=== PATIENT | female | born 1950 | race Caucasian/White ===

== ENCOUNTER → 2019-11-08 07:34 | Outpatient (CLI) | payer MEDICARE, OTHER, SELFPAY ==
--- NOTE | 2019-11-08 | DI.MRI.S_ITS ---
PROCEDURE: MR WRIST LT WO CON INDICATIONS: UNSPECIFIED SUPERFICIAL OF LEFT WRIST TECHNIQUE: Noncontrast coronal proton density fast spin echo and T2 fast spin echo with fat saturation; coronal 3-D gradient echo, axial T1 spin echo and T2 fast spin echo with fat saturation, sagittal T1 spin echo through the wrist. COMPARISON: None. FINDINGS: Image quality: Excellent. Bones and cartilage: The carpal bones are normally aligned. No bone marrow contusions or fractures. No evidence for avascular necrosis. Scattered degenerative subchondral sclerosis and spurring. Carpal ligaments: The scapholunate and lunotriquetral ligaments appear intact. In the absence of intra-articular contrast, the extrinsic carpal ligaments are not well identified. On sagittal images, the pisohamate ligament appears intact. Triangular fibrocartilage complex: The triangular fibrocartilage appears intact. The adjacent meniscal homolog appears normal in the absence of intra-articular contrast. The extensor carpi ulnaris tendon is intact although there is mild adjacent fluid suggestive of low-grade tenosynovitis. Tendons and soft tissues: The carpal tunnel structures appear normal, including the median nerve. The ulnar nerve appears normal within Guyon's canal. There is mild fluid adjacent to the extensor carpi radialis longus and brevis tendon suggestive of low-grade tenosynovitis. However, there is marked thickening of the extensor pollicis brevis tendon at the level of the scaphoid, with marked intrasubstance signal change and T2 hyperintensity. There is adjacent edema and fluid. No soft tissue ganglion cysts. IMPRESSION: Severe extensor pollicis brevis tendinopathy, at the level of the anatomic snuffbox, suggestive of de Quervain's tenosynovitis Low-grade tenosynovitis involving the extensor carpi ulnaris, extensor carpi radialis longus and brevis. Dictated by: Nitish Rogers M.D. on 11/08/2019 at 10:40 Approved by: Nitish Rogers M.D. on 11/08/2019 at 10:57
== END ==
PROVIDERS: PCP General Practice; Referring Provider General Practice; Visit Provider General Practice
DX: S60.912A Unspecified superficial injury of left wrist, initial encounter (principal); M65.832 Other synovitis and tenosynovitis, left forearm; X58.XXXA Exposure to other specified factors, initial encounter
CPT/HCPCS: 73221

== ENCOUNTER 2020-10-19 09:42 | Inpatient (IN) | payer MEDICARE, OTHER, SELFPAY ==
[2020-10-19] VITALS (16 sets, daily range): BP systolic 110–157; BP diastolic 66–84; PULSE 60–82; RESP 12–39; TEMP 36.4–37.3; O2SAT 94–98; BMI 29.4
--- NOTE | 2020-10-19 10:22 | DI.RAD.S_ITS ---
PROCEDURE: XR CHEST 1V INDICATIONS: chest pain TECHNIQUE: One view of the chest was acquired. COMPARISON: None. FINDINGS: Surgical changes and devices: None. Lungs and pleura: Lungs are clear. No pleural effusions or pneumothorax. Mediastinum: Mediastinal contours appear normal. Heart size is normal. Bones and chest wall: No suspicious bony lesions. Overlying soft tissues appear unremarkable. IMPRESSION: Normal for age, source of current chest pain symptoms is not seen. Dictated by: Adam Garcia M.D. on 10/19/2020 at 11:02 Approved by: Adam Garcia M.D. on 10/19/2020 at 11:02
--- NOTE | 2020-10-19 10:33 | DI.CT.S_ITS ---
PROCEDURE: CT ANGIO HEAD AND NECK INDICATIONS: right side numbness TECHNIQUE: Precontrast CT scanning earlier same day reviewed. After the administration of intravenous contrast, 1 mm thick sections acquired from the aortic arch through the [place] of [place]. Post-contrast 4.5 mm thick sections then re-acquired from the foramen magnum to the vertex. 3-dimensional thwraqw-oklvafbxo-cywlezeirw (MIP) and/or volume rendering reformats were acquired of the central intracranial vasculature and neck separately. COMPARISON: [facility], CT, CT HEAD/BRAIN WO CON, 10/19/2020, 11:26. FINDINGS: Image quality: Excellent. BRAIN: CSF spaces: Ventricles are normal in size and shape. Basal cisterns are patent. No extra-axial fluid collections. Brain: No midline shift. No intracranial bleeds or masses. Snyder-white matter interface appears intact. Skull and face: Calvarium and facial bones appear intact, without suspicious lesions. Orbits appear normal. Sinuses: Sinuses and mastoids are clear. HEAD CT ANGIOGRAPHY: Anterior circulation: Intracranial internal carotid arteries are normal in size and flow. The flow within the paired anterior cerebral arteries is normal and symmetric. The flow within the middle cerebral arteries is normal and symmetric. The anterior communicating artery is seen. No aneurysms are seen. Posterior circulation: Visualized portions of the vertebral arteries demonstrate normal caliber, and join to form a normal appearing basilar artery. Flow within the posterior cerebral arteries is normal and symmetric. No aneurysms are seen. NECK CT ANGIOGRAPHY: Carotid system: The great vessels demonstrate a conventional anatomy as they arise from the aortic arch. The origins of the common carotid arteries appear patent. The common carotid arteries demonstrate normal caliber and courses. The bifurcation regions are both widely patent. The internal carotid arteries demonstrate normal calibers and courses. Posterior circulation: The origins of the vertebral arteries both appear widely patent. The more superior extracranial portions of both vertebral arteries also demonstrate normal courses and calibers. They join to form a normal appearing basilar artery. Soft tissues: Visualized neck soft tissues demonstrate no suspicious abnormalities. Bones: No suspicious bony lesions. Visualized cervical spine appears normally aligned. IMPRESSION: No sign of aneurysm or occlusion by embolic disease. No vascular malformation is seen. Intracranial CT angiogram appears normal. Cervical CT angiogram appears normal. Any quantitative measurements of stenosis were performed using NASCET criteria. Dictated by: Adam Garcia M.D. on 10/19/2020 at 11:57 Approved by: Adam Garcia M.D. on 10/19/2020 at 12:00
--- NOTE | 2020-10-19 10:33 | DI.CT.S_ITS ---
PROCEDURE: CT HEAD/BRAIN WO CON INDICATIONS: right side numbness woke up with symptoms TECHNIQUE: Noncontrast 4.5 mm thick angled axial sections acquired from the foramen magnum to the vertex, with coronal and sagittal reformats. For radiation dose reduction, the following was used: automated exposure control, adjustment of mA and/or kV according to patient size. COMPARISON: None. FINDINGS: Image quality: Excellent. CSF spaces: Basal cisterns are patent. No extra-axial fluid collections. Ventricles are normal in size and shape. Brain: No midline shift. No intracranial masses or hemorrhage. Snyder-white matter interface is normal. Skull and face: Calvarium and visualized facial bones are intact, without suspicious lesions. Sinuses: Visualized sinuses and mastoids are clear. IMPRESSION: Normal for age, source of current right-sided numbness symptoms is not seen. Dictated by: Adam Garcia M.D. on 10/19/2020 at 10:55 Approved by: Adam Garcia M.D. on 10/19/2020 at 10:57
[2020-10-19 10:35] LABS: Magnesium 1.9 mg/dL (1.6-2.3)
[2020-10-19 10:36] LABS: Alanine Aminotransferase 27 IU/L (<35); Albumin 4.1 g/dL (3.5-5.0); Albumin Globulin Ratio 1.3 (1.0-2.8); Alkaline Phosphatase 81 U/L (38-126); Aspartate Aminotransferase 35 IU/L (14-36); BUN Creatinine Ratio 24.6 (6-22); Bilirubin Total 0.3 mg/dL (0.2-1.3); Blood Urea Nitrogen 15 mg/dL (7-17); Calcium 9.6 mg/dL (8.4-10.2); Carbon Dioxide 25 mmol/L (22-32); Chloride 106 mmol/L (98-107); Creatine Kinase 27 U/L (30-135); Estimated Glomerular Filt Rate > 60.0 mL/min (>60); Globulin 3.1 g/dL (1.7-4.1); Glucose 95 mg/dL (80-110); HEMOLYSIS < 15 (0-50); Lipase 144 U/L (23-300); Potassium 4.2 mmol/L (3.4-5.1); Sodium 141 mmol/L (137-145); Total Protein 7.2 g/dL (6.3-8.2)
[2020-10-19 10:42] LABS: Add Manual Diff / Slide Review NO; Basophils Absolute Auto 0 /uL (0-100); Basophils Percent Auto 0.4 % (0-2); Eosinophils Absolute Auto 100 /uL (0-450); Eosinophils Percent Auto 1.1 % (2-4); Hemoglobin 14.2 g/dL (12.0-16.0); Lymphocytes Absolute Auto 1500 /uL (1100-4500); Lymphocytes Percent Auto 30.1 % (25-40); Mean Corpuscular HGB Conc 32.3 % (30-36); Mean Corpuscular Hemoglobin 25.4 PG (26-34); Mean Corpuscular Volume 78.5 fL (80-100); Monocytes Absolute Auto 400 /uL (0-900); Neutrophils Absolute Auto 3100 /uL (1500-7000); Neutrophils Percent Auto 61.4 % (50-75); Platelet Count 213 X10^3/uL (150-400); Red Blood Cell Count 5.61 X10^6/uL (4.0-5.2); Red Cell Distribution Width 13.9 % (11.6-14.8); White Blood Cell Count 5.1 X10^3/uL (4.5-11.0)
[2020-10-19 10:47] LABS: Troponin I < 0.012 ng/mL (0.01-0.034)
--- NOTE | 2020-10-19 10:55 | ED_ITS ---
HPI - Neuro Symptoms/Deficit General Chief Complaint: Neuro Symptoms/Deficit Stated Complaint: NUMBNESS ON LEFT SIDE OF BODY Time Seen by Provider: 10/19/20 10:33 Source: patient Mode of arrival: Ambulatory Limitations: no limitations History of Present Illness HPI Narrative: Patient is a 69-year-old female who woke up with right-sided weakness. She says she went to bed normal last night when she went to brush her teeth this morning and was unable to hold a toothbrush. She has some mild numbness on the right side as well. No difficulty walking or talking. No prior history of his CVA or TIA. She does take aspirin daily she took 81 mg this morning. Location: right arm On Anticoagulants: No Related Data Home Medications Medication Instructions Recorded Confirmed aspirin 81 mg PO DAILY 10/19/20 10/19/20 calcium carbonate-vitamin D2 1 tab PO DAILY 10/19/20 10/19/20 [Calcium + Vitamin D] levothyroxine [Synthroid] 25 mcg PO DAILY 10/19/20 10/19/20 multivitamin [A To Z Multivitamin] 1 tab PO DAILY 10/19/20 10/19/20 omeprazole 20 mg PO DAILY 10/19/20 10/19/20 sertraline 200 mg PO DAILY 10/19/20 10/19/20 tolterodine 2 mg PO DAILY 10/19/20 10/19/20 Allergies Allergy/AdvReac Type Severity Reaction Status Date / Time zinc Allergy Verified 10/19/20 10:17 Review of Systems Review of Systems Narrative: GENERAL: Denies chills, fatigue, malaise, fever, sweats, travel HEENT: Denies sinus pain, ear pain, sore throat, difficulty swallowing, neck p ain RESPIRATORY: Denies dyspnea, cough, wheezing, hemoptysis, sputum. CARDIOVASCULAR: Denies chest pain, palpitations, orthopnea, edema GASTROINTESTINAL: Denies nausea, vomiting, abdominal pain, diarrhea, constipation, melena. : Denies dysuria, frequency, incontinence, hematuria, urinary retention, flank pain. MUSCULOSKELETAL: Denies weakness, joint pain, or bony pain SKIN: No rash, no erythema, no pruritus NEUROLOGIC: See HPI PSYCHIATRIC: No concerning psychosocial issues. 12 point review of systems is negative except for those stated above and HPI Hematologic/Lymphatic On Anticoagulants: No Patient History Medical History Hypothyroidism Family History Sister Coronary artery disease Social History household members: significant other Smoking Status: Never smoker Smoking Status: Never smoker Substance Use Type: does not use Exam Initial Vital Signs Initial Vital Signs: Vital Signs Temperature 97.6 F 10/19/20 10:00 Pulse Rate 77 10/19/20 10:00 Respiratory Rate 18 10/19/20 10:00 Blood Pressure 135/77 10/19/20 10:00 Pulse Oximetry 95 10/19/20 10:00 GENERAL: Well-appearing 69-year-old female, well-nourished and in no acute distress. HEENT: Head atraumatic,EOMI, pupils reactive, face symmetric, moist mucous membranes CARDIOVASCULAR: Regular rate and rhythm without murmurs, rubs or gallops. RESPIRATORY: Breath sounds equal bilaterally, no wheezes rales or rhonchi. ABDOMEN: Soft, nontender. Normoactive bowel sounds all 4 quadrants. No guarding or rebound. EXTREMITIES: Normal range of motion, no clubbing or edema. Neurovascularly intact NEUROLOGICAL: Alert and oriented x4.Normal gait and speech. Cranial nerves II through XII grossly intact. Decreased police guard strength on the right but able to hold arm up for a full count of 10 Good jmwgeq-kl-rubp, good cdmv-vq-tocn, strength equal bilaterally, no dysarthria or aphasia, mild decrease in sensation in right hand but right arm is decreased, no visual changes, no facial droop SKIN: Warm, dry, no laceration, no petechiae, no rashes or lesions. Scores NIH Stroke Scale Level of Conciousness: Alert, keenly responsive Ask month/age: Answers both questions correctly. Open/close eyes, close hand: Performs both tasks correctly Best gaze horizontal: Normal Visual peralta: No visual loss Facial palsy: Normal symetrical movement Left arm drift: No drift for full 10 sec Right arm drift: No drift for full 10 sec Left leg drift: No drift for full 5 sec Right leg drift: No drift for full 5 sec Limb ataxia: Absent Sensory on face/arms/legs: Mild to moderate sensory loss, can tell touch Best language: No aphasia, normal Dysarthria: Normal Extinction or inattention: No abnormality Total NIH Stroke scale score: 1 Course Orders Ordered: ED Orders 10/19/20 10:10 Complete Blood Count AUTO DIFF Stat Comprehensive Metabolic Panel Stat Lipase Stat Magnesium Stat Troponin & CK Cardiac Panel Stat 10/19/20 10:22 XR chest 1V Stat EKG-12 Lead Stat 10/19/20 10:33 CT angio head and neck Stat CT head/brain wo con Stat 10/19/20 13:30 COVID19 - ADMIT ([facility] swab/PCR) Stat Acetaminophen (Acetaminophen 325 Mg Tablet) 650 mg PO Q6HR PRN PRN Reason: Fever/Mild Pain (1-3) Aspirin (Aspirin Ec 81 Mg Tablet) 81 mg PO DAILY [facility] Atorvastatin Calcium (Atorvastatin 20 Mg Tablet) 80 mg PO BEDTIME [facility] Clopidogrel Bisulfate (Clopidogrel 75 Mg Tablet) 75 mg PO DAILY [facility] Last Admin: 10/19/20 15:55 Dose: 75 mg Documented by: MOSES Enoxaparin Sodium (Enoxaparin 40 Mg/0.4 Ml Syringe) 40 mg SUBCUT DAILY [facility] Levothyroxine Sodium (Levothyroxine 25 Mcg Tablet) 25 mcg PO DAILY@0600 [facility] Naloxone HCl (Naloxone 0.4 Mg/Ml Vial) 0.2 mg IV Q2MIN PRN PRN Reason: Opiate Reversal Ondansetron HCl (Ondansetron 4 Mg/2 Ml Inj) 4 mg IV Q8HR PRN PRN Reason: Nausea And Vomiting Sertraline HCl (Sertraline 50 Mg Tablet) 200 mg PO DAILY [facility] Discontinued Medications Aspirin (Aspirin 81 Mg Chew Tab) 324 mg PO NOW ONE Stop: 10/19/20 10:23 Last Admin: 10/19/20 11:00 Dose: 243 mg Documented by: HILL Aspirin (Aspirin 81 Mg Chew Tab) 324 mg PO NOW ONE Stop: 10/19/20 13:20 Last Admin: 10/19/20 13:23 Dose: Not Given Documented by: SURJIT Vital Signs Vital signs: Vital Signs - 8 hr 10/19/20 11:00 10/19/20 11:03 10/19/20 11:47 Pulse Rate 67 74 65 Respiratory Rate 39 H 21 20 Blood Pressure 134/83 Pulse Oximetry 95 95 96 10/19/20 12:00 10/19/20 12:30 10/19/20 12:46 Pulse Rate 61 60 64 Respiratory Rate 20 24 18 Blood Pressure 119/72 Pulse Oximetry 96 94 98 10/19/20 13:00 06/05/21 13:05 Pulse Rate 61 61 Respiratory Rate 12 14 Blood Pressure 116/71 116/71 Pulse Oximetry 95 98 MDM - Neuro Symptoms/Deficit Lab Data Attestation: I reviewed the patient's lab results. Result diagrams: 10/19/20 10:10 10/19/20 10:10 Labs: Lab Results 10/19/20 10/19/20 10/19/20 Range/Units 10:10 10:10 10:10 WBC 5.1 (4.5-11.0) X10^3/uL RBC 5.61 H (4.0-5.2) X10^6/uL Hgb 14.2 (12.0-16.0) g/dL Hct 44.0 (36-46) % MCV 78.5 L (80-100) fL MCH 25.4 L (26-34) PG MCHC 32.3 (30-36) % RDW 13.9 (11.6-14.8) % Plt Count 213 (150-400) X10^3/uL Neut % (Auto) 61.4 (50-75) % Lymph % (Auto) 30.1 (25-40) % Churchill % (Auto) 7.0 (3-14) % Eos % (Auto) 1.1 L (2-4) % Baso % (Auto) 0.4 (0-2) % Neut # (Auto) 3100 (4566-2738) /uL Lymph # (Auto) 1500 (2624-0993) /uL Churchill # (Auto) 400 (0-900) /uL Eos # (Auto) 100 (0-450) /uL Baso # (Auto) 0 (0-100) /uL Sodium 141 (137-145) mmol/L Potassium 4.2 (3.4-5.1) mmol/L Chloride 106 (98-107) mmol/L Carbon Dioxide 25 (22-32) mmol/L BUN 15 (7-17) mg/dL Creatinine 0.61 (0.52-1.04) mg/dL Estimated GFR > 60.0 (>60) mL/min BUN/Creatinine Ratio 24.6 H (6-22) Glucose 95 (80-110) mg/dL Calcium 9.6 (8.4-10.2) mg/dL Magnesium 1.9 (1.6-2.3) mg/dL Total Bilirubin 0.3 (0.2-1.3) mg/dL AST 35 (14-36) IU/L ALT 27 (<35) IU/L Alkaline Phosphatase 81 (38-126) U/L Total Creatine Kinase 27 L (30-135) U/L CK-MB (CK-2) TNP CK-MB (CK-2) Rel Index TNP Troponin I < 0.012 (0.01-0.034) ng/mL Total Protein 7.2 (6.3-8.2) g/dL Albumin 4.1 (3.5-5.0) g/dL Globulin 3.1 (1.7-4.1) g/dL Albumin/Globulin Ratio 1.3 (1.0-2.8) Lipase 144 (23-300) U/L TSH (0.47-4.68) uIU/mL 10/19/20 Range/Units 10:10 WBC (4.5-11.0) X10^3/uL RBC (4.0-5.2) X10^6/uL Hgb (12.0-16.0) g/dL Hct (36-46) % MCV (80-100) fL MCH (26-34) PG MCHC (30-36) % RDW (11.6-14.8) % Plt Count (150-400) X10^3/uL Neut % (Auto) (50-75) % Lymph % (Auto) (25-40) % Churchill % (Auto) (3-14) % Eos % (Auto) (2-4) % Baso % (Auto) (0-2) % Neut # (Auto) (5155-0001) /uL Lymph # (Auto) (2062-5657) /uL Churchill # (Auto) (0-900) /uL Eos # (Auto) (0-450) /uL Baso # (Auto) (0-100) /uL Sodium (137-145) mmol/L Potassium (3.4-5.1) mmol/L Chloride (98-107) mmol/L Carbon Dioxide (22-32) mmol/L BUN (7-17) mg/dL Creatinine (0.52-1.04) mg/dL Estimated GFR (>60) mL/min BUN/Creatinine Ratio (6-22) Glucose (80-110) mg/dL Calcium (8.4-10.2) mg/dL Magnesium (1.6-2.3) mg/dL Total Bilirubin (0.2-1.3) mg/dL AST (14-36) IU/L ALT (<35) IU/L Alkaline Phosphatase (38-126) U/L Total Creatine Kinase (30-135) U/L CK-MB (CK-2) CK-MB (CK-2) Rel Index Troponin I (0.01-0.034) ng/mL Total Protein (6.3-8.2) g/dL Albumin (3.5-5.0) g/dL Globulin (1.7-4.1) g/dL Albumin/Globulin Ratio (1.0-2.8) Lipase (23-300) U/L TSH 1.95 (0.47-4.68) uIU/mL Imaging Data CTA - brain/neck: Radiologist's Impression: Signed Patient: Mary Beth Alfredo AMR#: [id number]: 3Acct:[id number]/Sex: 69 / FDate of Service: 10/19/20Loc: EDAccession Number: [id number] Procedure: CT angio head and neck Ordering Provider: Valentina Schultz D.O. PROCEDURE: CT ANGIO HEAD AND NECK INDICATIONS: right side numbness TECHNIQUE: Precontrast CT scanning earlier same day reviewed. After the administration of intravenous contrast, 1 mm thick sections acquired from the aortic arch through the [place] of [place]. Post-contrast 4.5 mm thick sections then re-acquired from the foramen magnum to the vertex. 3-dimensional ouwwuil-eajpsocex-ejglyuaciu (MIP) and/or volume rendering reformats were acquired of the central intracranial vasculature and neck separately. COMPARISON: [facility], CT, CT HEAD/BRAIN WO CON, 10/19/2020, 11:26. FINDINGS: Image quality: Excellent. BRAIN: CSF spaces: Ventricles are normal in size and shape. Basal cisterns are patent. No extra-axial fluid collections. Brain: No midline shift. No intracranial bleeds or masses. Snyder-white matter interface appears intact. Skull and face: Calvarium and facial bones appear intact, without suspicious lesions. Orbits appear normal. Sinuses: Sinuses and mastoids are clear. HEAD CT ANGIOGRAPHY: Anterior circulation: Intracranial internal carotid arteries are normal in size and flow. The flow within the paired anterior cerebral arteries is normal and symmetric. The flow within the middle cerebral arteries is normal and symmetric. The anterior communicating artery is seen. No aneurysms are seen. Posterior circulation: Visualized portions of the vertebral arteries demonstrate normal caliber, and join to form a normal appearing basilar artery. Flow within the posterior cerebral arteries is normal and symmetric. No aneurysms are seen. NECK CT ANGIOGRAPHY: Carotid system: The great vessels demonstrate a conventional anatomy as they arise from the aortic arch. The origins of the common carotid arteries appear patent. The common carotid arteries demonstrate normal caliber and courses. The bifurcation regions are both widely patent. The internal carotid arteries demonstrate normal calibers and courses. Posterior circulation: The origins of the vertebral arteries both appear widely patent. The more superior extracranial portions of both vertebral arteries also demonstrate normal courses and calibers. They join to form a normal appearing basilar artery. Soft tissues: Visualized neck soft tissues demonstrate no suspicious abnormalities. Bones: No suspicious bony lesions. Visualized cervical spine appears normally aligned. IMPRESSION: No sign of aneurysm or occlusion by embolic disease. No vascular malformation is seen. Intracranial CT angiogram appears normal. Cervical CT angiogram appears normal. Any quantitative measurements of stenosis were performed using NASCET criteria. Dictated by: Adam Garcia M.D. on 10/19/2020 at 11:57 Approved by: Adam Garcia M.D. on 10/19/2020 at 12:00 CT scan - head: Radiologist's Impression: PROCEDURE: CT HEAD/BRAIN WO CON INDICATIONS: right side numbness woke up with symptoms TECHNIQUE: Noncontrast 4.5 mm thick angled axial sections acquired from the foramen magnum to the vertex, with coronal and sagittal reformats. For radiation dose reduction, the following was used: automated exposure control, adjustment of mA and/or kV according to patient size. COMPARISON: None. FINDINGS: Image quality: Excellent. CSF spaces: Basal cisterns are patent. No extra-axial fluid collections. Ventricles are normal in size and shape. Brain: No midline shift. No intracranial masses or hemorrhage. Snyder-white matter interface is normal. Skull and face: Calvarium and visualized facial bones are intact, without suspicious lesions. Sinuses: Visualized sinuses and mastoids are clear. IMPRESSION: Normal for age, source of current right-sided numbness symptoms is not seen. Dictated by: Adam Garcia M.D. on 10/19/2020 at 10:55 Approved by: Adam Garcia M.D. on 10/19/2020 at 10:57 ECG Data Attestation: I personally reviewed and interpreted this ECG as follows: Prior ECG tracings: not available for review Interpretation: Rate 70 p.r. interval 172 QRS [address] changes Q-wave noted in lead 3 only no priors to compare MDM Narrative Medical decision making narrative: At this time patient signs and symptoms are concerning for CVA with rate hand weakness and inability no hold to fresh. Although NIH is notable for decreased sensation in right hand. She has mild decreased police guard strength of the right hand but is able to hold her arm a for a full 10 seconds. Signs symptoms and exam are consistent with CVA. However head CT and CTA are negative. Every examined patient as she is able to hold a pen in her right hand but she says it still does not feel quite right. Dr. Yepez updated patient symptoms and test results in ED to seen evaluate patient Discharge Plan Departure Patient Disposition: Admitted As Inpatient Clinical Impression: Cerebrovascular accident Admit Date/Time: 10/19/20 13:24 Admit Provider: Brad Yepez
[2020-10-19] MEDS: ASPIRIN 81 MG CHEW TAB 324 MG PO (11:00)
--- NOTE | 2020-10-19 13:58 | PC.NURSE ---
swallow screen passed, pt sitting up in bed eating
--- NOTE | 2020-10-19 14:37 | DI.MRI.S_ITS ---
PROCEDURE: MR STROKE Pre- and post-contrast brain MRI, non-contrast brain MR angiogram, pre- and postcontrast neck MR angiogram INDICATIONS: CVA TECHNIQUE: Brain: Noncontrast axial T1 spin echo, axial T2 fast spin echo, sagittal and axial FLAIR, coronal T2 fast spin echo, axial gradient echo, axial diffusion and ADC through the brain. After the administration of contrast, axial 3D VIBE of the cranial vasculature and brain. Brain MRA: Non-contrast 3-D time of flight MR angiogram, with multiple bilwmoa-clyqghbba-upwozyftli (MIP) reformats performed. Neck MRA: Axial and sagittal TruFISP through the neck. Coronal dynamic MR angiogram during administration of contrast in the arterial and venous phases, with 3-dimenstional hlmwcge-bpgskuazq-blmfsloeoi (MIP) reformats constructed from subtraction images. COMPARISON: None. FINDINGS: Image quality: Mildly reduced by patient motion during image acquisition. BRAIN: CSF spaces: Ventricles are normal in size and shape. Basal cisterns are patent. No extra-axial fluid collections. Brain: No intracranial bleeds or mass effects. Snyder-white matter interface is normal. Diffusion weighted images show no acute ischemic insults. Brainstem appears normal. Normal intravascular flow voids are present. No abnormal intracranial enhancement. Skull and face: Calvarial marrow signal is normal. Orbits appear normal. Sinuses: Sinuses and mastoids are clear. BRAIN MR ANGIOGRAM: Anterior circulation: Intracranial internal carotid arteries are normal in size and enhancement. The flow within the paired anterior cerebral arteries is normal and symmetric. The flow within the middle cerebral arteries is normal and symmetric. The anterior communicating artery is seen. No stenoses, occlusions, or aneurysms. Posterior circulation: The visualized portions of the vertebral arteries demonstrate normal caliber, and join to form a normal appearing basilar artery. The flow within the posterior cerebral arteries is normal and symmetric. No stenoses, occlusions, or aneurysms. NECK MR ANGIOGRAM: Carotids: Great vessels demonstrate a conventional anatomy as they arise from the aortic arch. The origins of the common carotid arteries appear patent. The calibers and courses of both common carotid arteries are normal. The bifurcation regions appear normal bilaterally. The internal carotid arteries demonstrate normal course and caliber. Posterior circulation: The origins of the vertebral arteries appear patent. More superior portions of both vertebral arteries demonstrate normal course and caliber, and join to form a normal appearing basilar artery. Miscellaneous: Subclavian arteries appear patent. Pre-contrast images through the neck show no soft tissue abnormalities. IMPRESSION: BRAIN MRI: No acute disease, no mass or trauma found. BRAIN MR ANGIOGRAM: Normal intracranial MR angiogram. NECK MR ANGIOGRAM: Normal cervical MR angiogram. Dictated by: Adam Garcia M.D. on 10/20/2020 at 8:43 Approved by: Adam Garcia M.D. on 10/20/2020 at 8:45
[2020-10-19 14:38] LABS: COVID19 - ADMIT (NP swab/PCR) Negative (Negative)
--- NOTE | 2020-10-19 14:39 | DI.ECHO.S_ITS ---
[facility] +---------+ : : [address] : [place] : : : : [id number] : : : : Phone: [phone]+ Echocardiogram Report + + :Name: TATYANA HYATT Study Date: 10/20/2020 Height: 60.5 in: :[facility] ReadingLocation: Weight: 153 lb : : Gender: Female BSA: 1.7 m2 : :: 1950 Age: 69 yrs BP: 154/84 mmHg: :Reason For Study: CVA : :Ordering Physician: EVANGELISTA, : :FELICIANO Performed By: Holly Daigle : :Referring: FELICIANO NAIDU : + + Interpretation Summary The left ventricle is normal in size and wall thickness. Left ventricular systolic function appears normal without focal wall motion abnormalities. The ejection fraction is estimated to be 60-65%. Diastolic parameters suggest a relaxation abnormality of the left ventricle, consistent with probable normal filling pressures. The right ventricle is normal in size and function. The right ventricular systolic pressure is estimated to be at least 22 mmHg based on an estimated right atrial pressure of 3 mm Hg. The left atrial size is normal. Right atrial size is normal. There is no significant valvular heart disease. The aortic root is normal size. Procedure: A two-dimensional transthoracic echocardiogram with color flow and Doppler was performed. The study quality was technically adequate. There is no prior echocardiogram noted for this patient. The patient was in sinus rhythm with heart rates between 63-75 bpm during the exam. Left Ventricle: The left ventricle is normal in size and wall thickness. Left ventricular systolic function appears normal without focal wall motion abnormalities. The ejection fraction is estimated to be 60-65%. Diastolic parameters suggest a relaxation abnormality of the left ventricle, consistent with probable normal filling pressures. Right Ventricle: The right ventricle is normal in size and function. Atria: The left atrial size is normal. Right atrial size is normal. There is no Doppler evidence for an interatrial shunt. Mitral Valve: The mitral valve is normal in structure and function. There is trace mitral regurgitation. Aortic Valve: The aortic valve is trileaflet. The aortic valve opens well. There is no aortic valve stenosis. No aortic regurgitation is present. Tricuspid Valve: The tricuspid valve is normal in structure and function. There is mild tricuspid regurgitation. The right ventricular systolic pressure is estimated to be at least 22 mmHg based on an estimated right atrial pressure of 3 mm Hg. Pulmonic Valve: The pulmonic valve leaflets are thin and pliable; valve motion is normal. There is no pulmonic valvular regurgitation. There is no significant valvular heart disease. Great Vessels: The aortic root is normal size. The dimensions of the ascending aorta are normal. The IVC is of normal diameter and collapses greater than 50% with a sniff. This suggests a low right atrial pressure of 3 mm Hg. Pericardium/ Pleura There is no pericardial effusion. There is no pleural effusion. MMode/2D Measurements & Calculations LVIDd: 3.9 cm LVOT diam: 2.0 cm LVIDs: 2.7 cm Ao root diam: 3.2 cm FS: 31.5 % asc Aorta Diam: 3.1 cm IVSd: 0.85 cm Ao Arch Diam (Prox Trans): 2.4 cm LVPWd: 0.75 cm LV patten. diameter/BSA (cm/m^2): 2.3 LV sys. diameter/BSA (cm/m^2): 1.6 LA A2 area: 16.1 cm2 RA long axis: 4.7 cm LA A4 area: 11.6 cm2 RA area: 13.6 cm2 LA length (vol): 4.3 cm RA vol: 33.5 ml LA vol: 36.9 ml RA : 20.0 ml/m2 LA vol index: 22.0 ml/m2 IVC diam: 1.0 cm RVD1 (basal): 3.4 cm TAPSE: 2.3 cm Doppler Measurements & Calculations Ao V2 max: 133.5 cm/sec LVOT Max Isaac: 115.4 cm/sec Ao V2 mean: 96.6 cm/sec LV V1 max P.3 mmHg Ao max P.1 mmHg LV V1 VTI: 21.8 cm Ao mean P.0 mmHg KELLI(I,D): 2.3 cm2 Ao V2 VTI: 29.1 cm KELLI(V,D): 2.7 cm2 sev ratio: 0.75 KELLI indexed to BSA (cm^2/m^2): 1.4 MV E max isaac: 67.6 cm/sec TR max isaac: 221.6 cm/sec MV A max isaac: 77.8 cm/sec TR max P.6 mmHg MV E/A: 0.87 PA pr(Accel): 29.2 mmHg Med Peak E' Isaac: 5.7 cm/sec E/E' med: 11.9 Lat Peak E' Isaac: 8.6 cm/sec E/E' lat: 7.8 E/e' average: 9.9 MV dec time: 0.20 sec SV(LVOT): 67.9 ml Reading Physician:03:25 PM
[2020-10-19] MEDS: CLOPIDOGREL 75 MG TABLET PO (15:55)
--- NOTE | 2020-10-19 16:20 | PM.HP.1 ---
History of Present Illness History of Present Illness Date Patient Seen: 10/19/20 Time Patient Seen: 12:20 Date of Onset of Symptoms: 10/19/20 Chief complaint: NUMBNESS ON LEFT SIDE OF BODY Narrative: Ms. Alfredo is a 59W with PMH hypothyroidism, depression who comes in with right hand weakness. Went to sleep last night feeling normal. This morning she woke up and had difficulty holding her toothbrush to brush teeth. She had right sided numbness on her hand. She had right leg numbness up above her knee from her toes. She had no other noted weakness. No difficulty walking. No difficulty with speech or swallowing. No vision disturbances. She is already taking daily baby aspirin. In Er workup was done, she was noted to have normal vital signs. Labs notable for WBC 5.1, Hgb 14.2, creatinine 0.61. Ct head done showed no abnormality. CT head/neck showed no stenosis and normal flow. Cxray with no acute abnormalities. She was given full dose aspirin and admitted for further treatment. Patient History Medical History Hypothyroidism Family & Social History Family History Sister Coronary artery disease Social History: household members significant other Prior Living Arrangements House Safety & Behavioral: Feels Safe in Current Yes Environment Been Physically Hurt or No Threatened By a Person Suicidal Ideation Description None Suicide Plan Description No Plan Tobacco & Substance use: Smoking Status Never smoker alcohol intake frequency holiday/special occasion Substance Use Type does not use Meds Home Medications and Allergies Home Medications Medication Instructions Recorded Confirmed Type aspirin 81 mg PO DAILY 10/19/20 10/19/20 History calcium carbonate-vitamin D2 1 tab PO DAILY 10/19/20 10/19/20 History [Calcium + Vitamin D] levothyroxine [Synthroid] 25 mcg PO DAILY 10/19/20 10/19/20 History multivitamin [A To Z Multivitamin] 1 tab PO DAILY 10/19/20 10/19/20 History omeprazole 20 mg PO DAILY 10/19/20 10/19/20 History sertraline 200 mg PO DAILY 10/19/20 10/19/20 History tolterodine 2 mg PO DAILY 10/19/20 10/19/20 History Allergies Allergy/AdvReac Type Severity Reaction Status Date / Time zinc Allergy Verified 10/19/20 10:17 Review of Systems Review of Systems Narrative: 14 systems reviewed and negative aside from HPI Exam Vital Signs (past 8 hours): - 10/19/20 10:00 10/19/20 10:01 10/19/20 10:30 Temperature 97.6 F Pulse Rate 77 82 70 Respiratory Rate 18 27 H 38 H Blood Pressure 135/77 134/83 Pulse Oximetry 95 95 10/19/20 11:00 10/19/20 11:03 10/19/20 11:47 Temperature Pulse Rate 67 74 65 Respiratory Rate 39 H 21 20 Blood Pressure 134/83 Pulse Oximetry 95 95 96 10/19/20 12:00 10/19/20 12:30 10/19/20 12:46 Temperature Pulse Rate 61 60 64 Respiratory Rate 20 24 18 Blood Pressure 119/72 Pulse Oximetry 96 94 98 10/19/20 13:00 10/19/20 13:05 10/19/20 13:30 Temperature Pulse Rate 61 61 65 Respiratory Rate 12 14 23 Blood Pressure 116/71 116/71 157/67 H Pulse Oximetry 95 98 97 10/19/20 14:00 10/19/20 14:30 Temperature 98.3 F Pulse Rate 76 73 Respiratory Rate 20 16 Blood Pressure 154/84 H Pulse Oximetry 97 Oxygen Delivery Method Room Air Oxygen Flow Rate 0 Narrative Exam Narrative: GEN: no acute distress HEENT: PERRL, extraocular muscle intact, moist mucous membranes NECK: no JVD, trachea midline CV: regular rate and rhythm with no murmurs PULM: clear bilaterally, no wheezes, rhonchi, rales ABD: soft, nontender, nondistended, no organomegaly, normal bowel sounds EXT: warm and well perfused no edema SKIN: no rashes noted NEURO: AAOx3, subjective numbness of R hand, and R lower extremity primarily at toes, but also up the lateral leg to above the knee, no facial numbness, no left sided numbness, slightly less strength for hand squeeze on right than left, otherwise 5/5 strength in upper and lower extremities, no drift with holding arms for 10 seconds, no cerebellar signs, speech clear, CN 2-12 intact Objective Labs Result Diagrams: 10/19/20 10:10 10/19/20 10:10 Labs: Laboratory Results - last 24 hr 10/19/20 10/19/20 10/19/20 10:10 10:10 10:10 WBC 5.1 RBC 5.61 H Hgb 14.2 Hct 44.0 MCV 78.5 L MCH 25.4 L MCHC 32.3 RDW 13.9 Plt Count 213 Neut % (Auto) 61.4 Lymph % (Auto) 30.1 Cabell % (Auto) 7.0 Eos % (Auto) 1.1 L Baso % (Auto) 0.4 Neut # (Auto) 3100 Lymph # (Auto) 1500 [place]ell # (Auto) 400 Eos # (Auto) 100 Baso # (Auto) 0 Sodium 141 Potassium 4.2 Chloride 106 Carbon Dioxide 25 BUN 15 Creatinine 0.61 Estimated GFR > 60.0 BUN/Creatinine Ratio 24.6 H Glucose 95 Calcium 9.6 Magnesium 1.9 Total Bilirubin 0.3 AST 35 ALT 27 Alkaline Phosphatase 81 Total Creatine Kinase 27 L CK-MB (CK-2) TNP CK-MB (CK-2) Rel Index TNP Troponin I < 0.012 Total Protein 7.2 Albumin 4.1 Globulin 3.1 Albumin/Globulin Ratio 1.3 Lipase 144 SARS-CoV-2 (PCR) 10/19/20 13:30 WBC RBC Hgb Hct MCV MCH MCHC RDW Plt Count Neut % (Auto) Lymph % (Auto) Cabell % (Auto) Eos % (Auto) Baso % (Auto) Neut # (Auto) Lymph # (Auto) Cabell # (Auto) Eos # (Auto) Baso # (Auto) Sodium Potassium Chloride Carbon Dioxide BUN Creatinine Estimated GFR BUN/Creatinine Ratio Glucose Calcium Magnesium Total Bilirubin AST ALT Alkaline Phosphatase Total Creatine Kinase CK-MB (CK-2) CK-MB (CK-2) Rel Index Troponin I Total Protein Albumin Globulin Albumin/Globulin Ratio Lipase SARS-CoV-2 (PCR) Negative Assessment & Plan Assessment & Plan narrative: Ms. Alfredo is a 69W with PMH hypothyroidism, depression who comes in with sudden onset right sided numbness, and right hand weakness. 1. R hand weakness, with R side numbness -clinically consistent with acute CVA -CT head and CT angio head and neck with no abnormality -already on aspirin as an outpatient -will continue on aspirin, and add plavix -start high dose atorvastatin -qshift NIH scores -swallow screen -PT/OT/speech therapy -MRI brain ordered, ECHO ordered -check a1c and lipids 2. Hypothyroidism -continue synthroid -check TSH 3. Depression -continue sertraline IVF: None DVT ppx: lovenox sc DIET: pending swallow screen CODE: DNR, proxy is spouse Herve Salinas Stroke Onset of Symptoms Date: 10/19/20 VTE Deep Vein Thrombosis/Pulmonary Embolism Present on Admission: No MIPS - Admit I confirm the patient?s Advance Care Plan is present, Code status is documented, Surrogate decision maker is in patient?s record [If Yes, STOP here]: Yes
--- NOTE | 2020-10-19 17:45 | DI.MRI.S_ITS ---
PROCEDURE: MR CERVICAL SPINE WO/W CON INDICATIONS: numbness back, R arm, leg TECHNIQUE: Noncontrast sagittal T1 spin echo and T2 fast spin echo, sagittal STIR, foraminal oblique sagittal T2 fast spin echo, axial gradient echo or T2 fast spin echo through the cervical spine. After the administration of contrast, axial and sagittal T1 spin echo with fat saturation through the cervical spine. COMPARISON: None. FINDINGS: Image quality: Degraded by patient motion during image acquisition especially on the postcontrast imaging.. Alignment and curvature: There is normal bony alignment. Marrow: Marrow is normal in overall signal, without suspicious enhancement. Spinal cord: Visualized spinal cord has normal size and signal. No cerebellar tonsillar herniation. No abnormal intramedullary enhancement. Paraspinous soft tissues: No paravertebral masses or suspicious enhancement. C2-3: Normal appearance. C3-4: Mild degenerative disc height reduction without spinal or foraminal stenosis C4-5: Mild degenerative disc height reduction, and facet osteoarthritis is moderate with bilateral foraminal stenosis but no spinal stenosis. Patient motion degrades image quality. C5-6: [id number] degenerative disc disease, posterior broad-based transverse disc bulge chronic in appearance. Foraminal stenosis is minimal on the right but moderate on the left. Again, patient motion degrades quality of visualization. Mild C5-6 degenerative spinal stenosis. C6-7: [id number] degenerative disc height reduction and desiccation, bilateral facet osteoarthritis produces mild foraminal stenosis. Quality of visualization is limited by patient motion. C7-T1: Moderate degenerative disc disease, with disc height reduction, disc desiccation and a posterior broad-based chronic appearing mild disc bulge. Mild anterior spinal stenosis, asymmetric left greater than right bilateral foraminal stenosis appears present, minimal on the right and mild on the left. IMPRESSION: Significant patient motion degrades quality of visualization of this study is specially on postcontrast imaging and axial T2 imaging. The study shows moderate degenerative disc disease overall, with chronic appearing posterior transverse disc bulges, but only mild spinal stenosis at C5-6 and C7-T1. The degenerative facet osteoarthritis is associated with multilevel foraminal stenosis, generally left greater than right, and no definite disc herniation is found. Dictated by: Adam Garcia M.D. on 10/20/2020 at 8:46 Approved by: Adam Garcia M.D. on 10/20/2020 at 8:52
[2020-10-19 18:36] LABS: TSH w/ Reflex to FT4 1.95 uIU/mL (0.47-4.68)
[2020-10-19] MEDS: ATORVASTATIN 20 MG TABLET 80 MG PO (21:09)
[2020-10-20 04:25] VITALS: BP 138/77; PULSE 80; RESP 18; TEMP 36.4; O2SAT 98
[2020-10-20] MEDS: LEVOTHYROXINE 25 MCG TABLET PO (05:45)
[2020-10-20 06:13] LABS: Add Manual Diff / Slide Review NO; Basophils Absolute Auto 0 /uL (0-100); Basophils Percent Auto 0.4 % (0-2); Eosinophils Absolute Auto 100 /uL (0-450); Eosinophils Percent Auto 1.6 % (2-4); Hematocrit 42.2 % (36-46); Lymphocytes Absolute Auto 1900 /uL (1100-4500); Lymphocytes Percent Auto 32.6 % (25-40); Mean Corpuscular HGB Conc 33.2 % (30-36); Mean Corpuscular Hemoglobin 26.1 PG (26-34); Mean Corpuscular Volume 78.6 fL (80-100); Monocytes Absolute Auto 500 /uL (0-900); Monocytes Percent Auto 8.2 % (3-14); Neutrophils Absolute Auto 3300 /uL (1500-7000); Neutrophils Percent Auto 57.2 % (50-75); Platelet Count 187 X10^3/uL (150-400); Red Blood Cell Count 5.37 X10^6/uL (4.0-5.2); Red Cell Distribution Width 13.6 % (11.6-14.8); White Blood Cell Count 5.8 X10^3/uL (4.5-11.0)
[2020-10-20 06:20] LABS: Hemoglobin A1C% w Est Avg Glu 5.3 % (4.0-6.0)
[2020-10-20 06:30] LABS: Cholesterol 233 mg/dL (140-199); HDL Cholesterol 68 mg/dL (40-60); LDL Cholesterol Calculated 151 mg/dL (<100); Triglycerides 72 mg/dL (35-150)
[2020-10-20 06:31] LABS: BUN Creatinine Ratio 23.8 (6-22); Blood Urea Nitrogen 15 mg/dL (7-17); Calcium 8.9 mg/dL (8.4-10.2); Carbon Dioxide 30 mmol/L (22-32); Chloride 108 mmol/L (98-107); Estimated Glomerular Filt Rate > 60.0 mL/min (>60); Glucose 99 mg/dL (80-110); HEMOLYSIS < 15 (0-50); Potassium 4.6 mmol/L (3.4-5.1); Sodium 141 mmol/L (137-145)
[2020-10-20 07:00] LABS: TSH w/ Reflex to FT4 3.67 uIU/mL (0.47-4.68)
[2020-10-20] MEDS: LORazepam 2 MG/ML INJ 1 MG IV (08:02)
[2020-10-20] MEDS: ASPIRIN EC 81 MG TABLET PO (08:07)
[2020-10-20] MEDS: SERTRALINE 50 MG TABLET 200 MG PO (08:09)
[2020-10-20] MEDS: ENOXAPARIN 40 MG/0.4 ML SYRINGE SUBCUT (08:10)
[2020-10-20] MEDS: CLOPIDOGREL 75 MG TABLET PO (08:10)
[2020-10-20] MEDS: ACETAMINOPHEN 325 MG TABLET 650 MG PO (09:33)
[2020-10-20 09:38] VITALS: BP 135/70; PULSE 81; RESP 16; TEMP 36.7; O2SAT 98
--- NOTE | 2020-10-20 09:53 | CM.DANOTE ---
Addendum entered by Karma Recinos R.N. 10/20/20 14:15: Hospitalist indicated that MRI was misread, and patient did have CVA. P.T. recommending acute inpatient rehab. Called [facility] inpatient rehab and left a message regarding referral, and went ahead and faxed over H&P, face sheet, as well as P.T. notes. She has not had O.T. as of yet, as is unavailable today. Met with patient and . Patient teary, overwhelmed. Mentioned inpatient rehab, and the benefits. Also mentioned other options, outpatient with [facility], or home health. Let her know that for [facility], she will have to see occupational therapy as well, as two disciplines are needed, which would be tomorrow. Patient wishes to have some time to discuss with , and will let this case technician know. Original Note: DCP: Case received, EMR reviewed. Patient was having MRI, but was able to meet with patient's , Amari, who was at bedside. Introduced self and role. Was able to obtain information regarding patient's baseline activity status prior to hospitalization. DCP assessment completed with information currently available. Patient is a 69 year old female who admitted yesterday afternoon to the care of the hospitalist team. PCP: [facility], [place]. Payer: confirmed: Medicare/[employer]. Patient came to the hospital via private vehicle secondary to having right sided numbness and weakness. Patient had been brushing her teeth, and developed some tingling in her right hand, as well as her leg. Patient is being worked up here at the hospital for CVA. She is currently having MRI. Met with patient's , Amari, who was at bedside. Patient and reside in [place]. They are both retired. Patient is independent at her baseline, and is part of [employer]. Patient does get her care at the [facility], for her is retired [facility], could not remember the name of her new provider. P: DCP to continue to follow. Patient will be working with P.T as well, and MRI results are pending. Karma Recinos RN/Channeling Machine Operator
--- NOTE | 2020-10-20 10:00 | PT.IIE ---
Current Diagnoses Cerebral infarction, unspecified (10/19/20) Medical History (Last Reviewed 10/19/20 @ 16:25 by Brad Yepez MD) Hypothyroidism Physical Therapy Inpatient Evaluation/Re-Eval M1 PT/OT-IP Prior Functional Status Start: 10/20/20 08:59 Freq: NEEDED Status: Active Protocol: Document 10/20/20 10:00 AW (Rec: 10/20/20 12:17 AW [id number]) Medical Review Prior Functional Status Medical History Reviewed Yes Communication WNL. Pt is an effective verbal communicator. Mobility and Gait Pt is independent for all mobility without AD at baseline. Activities of Daily Living and IADL's Independent with all ADL and IADL needs. Social History Household Members spouse Living Arrangements House Number of Floors (Floors) One Floor Number of Stairs To Enter/Railing? 2 NIHARIKA with R rail ascending Home Environment Standard Height Toilet,Walk in Shower Home Equipment Front Wheel Walker,Straight Cane,Grab Bars In Shower Employment Status Retired Additional Social History Comment Pt lives with her spouse, Amari. Both are retired. M2 PT-IP Current Condition Start: 10/20/20 08:59 Freq: NEEDED Status: Active Protocol: Document 10/20/20 10:00 AW (Rec: 10/20/20 12:17 AW [id number]) Physical Therapy Current Condition Current Condition Evaluation Date 10/20/20 Treatment Diagnosis R sided weakness and numbness, impaired balance and gait Onset Date 10/19/20 M3 PT-IP Subjective Start: 10/20/20 08:59 Freq: NEEDED Status: Active Protocol: Document 10/20/20 10:00 AW (Rec: 10/20/20 12:17 AW [id number]) Subjective Physical Therapy Visit Type Type Initial Evaluation Visit Start Time 09:26 Visit Stop Time 10:00 Total Visit Minutes 34 Notes Pt's spouse was present throughout this encounter Physical Therapy Visit Comments Patient Comments Pt just returned from MRI and has a slight headache but is willing to work with PT Patient Goals Improve balance and safety. Therapy Pain Assessment Pain When Pain Assessed At Rest Pain Present Pain Present Pain Reported Location headache Scale Used not quantified Pain Management Techniques Distraction,Timing of Activity with Medications M4 PT-IP Mobility and Gait Start: 10/20/20 08:59 Freq: NEEDED Status: Active Protocol: Document 10/20/20 10:00 AW (Rec: 10/20/20 12:17 AW [id number]) PT-Bed Mobility Assessment Supine to Sit Supine to Sit Contact Guard Assistance Sit to Supine Sit to Supine Standby Assistance Scooting Scooting to Edge of Bed Standby Assistance PT-Transfer Assessment Sit to and From Stand Sit to and from Stand Contact Guard Assistance, Minimal Assistance,1 Person Assistance,Use of Upper Extremities Equipment Transfer Assistive Device None,Gait Belt,Front Wheeled Walker Orthotic/Prosthetic Devices or Brace: No Transfers Transfer Destination Bed,Chair Transfer Technique Stand Step Pivot Transfer Ability Level of Assist Contact Guard Assistance Comments Mobility Comments Pt was reclined in the bed as PT arrived. BP was 101/68 HR 72. Pt completed supine to sitting EOB CGA to min assist due to weak RUE. Pt sat EOB for assessment with occasional LOB from which she was able to recover without assist. She stood from the bed CGA for initial unsteadiness and needed CGA/min assist to step away from the bed without AD. Pt wondered out loud if ativan (admin prior to MRI) may be affecting her balance. She ambulated around the room, needing min assist for (+) LOB laterally. With FWW, pt ambulated in the halls a total of 150 feet SBA/CGA. Gait was notable for RLE buckling in stance phase and crossing midline in swing phase but pt was able to use the FWW to steady herself. On return to the room, pt transferred to the chair and then to the bed using FWW SBA. BP after activity was 135/70 HR 79. Pt was left in bed with call light and tray table in reach. Her spouse remained in the room. Gait Assessment Gait Gait Assistance Required: Contact Guard Assist,Minimum Assistance Distance (Feet) 150 Assistive Devices Assistive Device Gait Belt,Front Wheeled Walker Orthotic/Prosthetic Devices or Brace: No Gait Deviations General Gait Pattern Ataxic,Decreased Stride Length ,Decreased Feet Clearance, Lateral Trunk Lean,Narrow Based Gait Factors Limiting Gait Function Factors Limiting Gait Function Decreased Sensation,Decreased Strength,Incoordination,Poor Balance,Poor Safety Awareness Comments Gait Comments See mobility comments for details. Stair Climbing Assessment Comments Stair Climbing Comments Not assessed. PT-Balance Assessment Sitting Balance and Reactions Static Sitting Balance Ability Fair Dynamic Sitting Balance Ability Fair Standing Balance and Reactions Static Standing Balance Ability Poor Dynamic Standing Balance Ability Poor Device Used FWW Balance Tests Romberg increased sway with EO; unable with EC Tandem Standing unable to achieve test position M5 PT-IP Objective Assessments Start: 10/20/20 08:59 Freq: NEEDED Status: Active Protocol: Document 10/20/20 10:00 AW (Rec: 10/20/20 12:17 AW [id number]) Orientation Orientation/Cognition Level of Alertness Alert Orientation Name,Day of Week,Place, Situation Language Function Ability No Deficits Noted Safety Awareness Understands Safety Issues Gross Range of Motion Upper Extremity ROM Assessment Within Functional Limits Lower Extremity ROM Assessment Within Functional Limits Strength Upper Extremity Strength Assessment Right Impaired Shoulder 4/5 Elbow 4/5 Hand 4/5 Lower Extremity Strength Assessment Right Impaired Hip 4-/5 Knee 4-/5 Ankle 4/5 Comments Strength Comments LUE and LLE grossly 4+/5 Coordination Assessment Gross Coordination Gross Coordination Impaired Assessment Finger to Nose Test RUE missed targets with EC; with EO, RUE slightly slower Pronation/Supination Test Normal Performance Sensation Assessment Sensation Gross Sensation Right UE Impaired,Right LE Impaired Light Touch Impaired Proprioception (Position) Impaired Sensation Description Numbness Comments Sensation Comments Numbness present from just above elbow and distally, knee and distal. Muscle Tone Muscle Tone WNL Yes Other Assessments Other Other Assessments Occulomotor and vestibular screening were grossly WNL. Pt has corrected vision and no new deficits. M6 PT-IP Treatment Start: 10/20/20 08:59 Freq: NEEDED Status: Active Protocol: Document 10/20/20 10:00 AW (Rec: 10/20/20 12:17 AW [id number]) Physical Therapy Treatment Education Education Provided Safety M7 PT-IP Assessment and Plan Start: 10/20/20 08:59 Freq: NEEDED Status: Active Protocol: Document 10/20/20 10:00 AW (Rec: 10/20/20 12:17 AW [id number]) PT Summary Assessment and Plan Potential Rehabilitation Potential Good Status of Condition at Evaluation Evolving Summary Impairments Strength,Balance,Coordination, Sensation,Bed Mobility, Transfers,Gait Assessment Summary Nita is a 69 yo woman admitted with complaints of right sided numbness and weakness. CT head, CTA, and MRI head are all negative for acute process. CT cervical spine demonstrated moderate degenerative disc disease overall, with chronic appearing posterior transverse disc bulges, but only mild spinal stenosis at C5-6 and C7 -T1. Pt is independent in all regards at baseline. On exam, pt required CGA to min assist with bed mobility, transfers, and ambulation using FWW due to right sided weakness and impaired proprioception affecting her balance and safety in gait. Unclear whether medication administered prior to MRI may be affecting her balance. PT recommends use of FWW at this time. Pt would benefit from acute rehab vs outpatient PT to address balance and gait impairments. Goals Bed Mobility Goal Independent Transfer Goal Independent Gait Goal Independent,Front Wheel Walker Gait Distance 200 Other Goals - improve gait to independent with SPC or no AD Days to Meet Goals 10 Frequency of Treatment Frequency Of Treatment Once a Day Treatment Plan Physical Therapy Treatment Plan Bed Mobility Training,Transfer Training,Gait Training, Therapeutic Exercise,Balance Retraining,Discharge Planning, Hot or Cold Pack,Neuromuscular Re-ed,Coordination Retraining Other Recommendations and Next Treatment gait training, assess stairs, Focus balance interventions Recommendations To Nursing Amount of Assist Needed 1 Person Assist Discharge Recommendations PT Discharge Recommendations Home with Assistance,Acute Rehab,Outpatient PT Equipment Needed for Home Before may need FWW (youth size) Discharge Transportation Needs at Discharge Private Vehicle
[2020-10-20 11:53] VITALS: BP 131/67; PULSE 63; RESP 16; TEMP 36.3; O2SAT 97
[2020-10-20 12:11] LABS: Vitamin B12 557 pg/mL (239-931)
--- NOTE | 2020-10-20 14:36 | PM.DS.1 ---
History of Present Illness History of Present Illness Chief complaint: NUMBNESS ON LEFT SIDE OF BODY Narrative: Ms. Alfredo is a 59W with PMH hypothyroidism, depression who comes in with right hand weakness. Went to sleep last night feeling normal. This morning she woke up and had difficulty holding her toothbrush to brush teeth. She had right sided numbness on her hand. She had right leg numbness up above her knee from her toes. She had no other noted weakness. No difficulty walking. No difficulty with speech or swallowing. No vision disturbances. She is already taking daily baby aspirin. In Er workup was done, she was noted to have normal vital signs. Labs notable for WBC 5.1, Hgb 14.2, creatinine 0.61. Ct head done showed no abnormality. CT head/neck showed no stenosis and normal flow. Cxray with no acute abnormalities. She was given full dose aspirin and admitted for further treatment. Discharge Providers Provider Date of admission: 10/19/20 13:24 Discharge Date: 10/20/20 Primary care physician: Doctor Tk MD Consults: 10/19/20 14:37 Consult to Discharge Planning Routine Comment: Consult to Occupational Therapy Evaluate & Treat Comment: Physician Instructions: Evaluate and treat Consult to Physical Therapy Evaluate & Treat Comment: Physician Instructions: Evaluate and Treat Consult to Speech Therapy Evaluate & Treat Comment: Physician Instructions: Evaluate and treat Discharge provider: Brad Yepez MD Summary Hospital Course Discharge Diagnosis: 1. Acute left thalamic stroke 2. Hypothyroidism 3. Depression, chronic Hospital Course: Ms. Alfredo came in to the hospital with R sided numbness in her hand up to her elbow. She noticed this in her R foot as well up to near her knee on the lateral side of her right leg. She had difficulty with movement of her hand. She had ataxia when walking and felt like R leg would collapse. MRI showed a small left thalamic stroke. She was already on aspirin. She was started on atorvastatin and plavix. She should be on dual antiplatelet therapy for 21 days and then stop aspirin. She had CT angio of head and neck with no significant stenosis, and ECHO showed no evidence of clot. Her blood pressure was well controlled in the hospital. Her a1c was 5.3. After working with physical therapy she was recommended to be discharged to acute rehab. She declined and stated she preferred to be at home doing outpatient therapy. She was written for outpatient PT, OT treatment. She should follow with her PCP within one week. Status at Discharge Cognitive/behavioral status at discharge: oriented Overall status at discharge: patient is progressing back to baseline Exam Vital Signs (past 8 hours): Oxygen Delivery Method Room Air Oxygen Flow Rate 0 Narrative Exam Narrative: GEN: no acute distress HEENT: PERRL, extraocular muscle intact, moist mucous membranes NECK: no JVD, trachea midline CV: regular rate and rhythm with no murmurs PULM: clear bilaterally, no wheezes, rhonchi, rales ABD: soft, nontender, nondistended, no organomegaly, normal bowel sounds EXT: warm and well perfused no edema SKIN: no rashes noted NEURO: AAOx3, subjective numbness of R hand, and R lower extremity primarily at toes, but also up the lateral leg to above the knee, no facial numbness, no left sided numbness, slightly less strength for hand squeeze on right than left, otherwise 5/5 strength in upper and lower extremities, no drift with holding arms for 10 seconds, no cerebellar signs, speech clear, CN 2-12 intact Objective Labs Result Diagrams: 10/20/20 05:55 10/20/20 05:55 [facility] Medical History Hypothyroidism Family History Sister Coronary artery disease Social History household members: spouse Smoking Status: Never smoker Discharge Plan Discharge Plan Patient Disposition: Home Provider Discharge Comment: Ms. Alfredo was admitted with right sided numbness, imbalance, and weakened right hand enrollment advisor. She was found to have a small stroke on MRI. She had already been on aspirin before coming in. She will have plavix added and should take both aspirin and plavix for 21 days. After this, she should stop aspirin, and continue plavix only. She also had high cholesterol and is added atorvastatin. Her blood pressure was well controlled, she had no diabetes. To lower the chance of another stroke it is important to take your plavix and atorvastatin every day. Also eating healthy and regular exercise. Please follow up with your primary care doctor who should continue to monitor your blood sugars and blood pressure to make sure they remain well controlled. Discharge orders & Medications Prescriptions: New atorvastatin [Lipitor] 20 mg Tablet 80 mg PO BEDTIME Qty: 120 RF: 0 clopidogrel 75 mg Tablet 75 mg PO DAILY Qty: 30 RF: 0 Continued omeprazole 20 mg capsule,delayed release(DR/EC) 20 mg PO DAILY RF: 0 multivitamin Tablet 1 tab PO DAILY RF: 0 tolterodine 2 mg capsule,extended release 24hr 2 mg PO DAILY RF: 0 sertraline 100 mg tablet 200 mg PO DAILY RF: 0 aspirin 81 mg tablet,delayed release (DR/EC) 81 mg PO DAILY RF: 0 levothyroxine [Synthroid] 25 mcg tablet 25 mcg PO DAILY RF: 0 calcium carbonate-vitamin D2 600 mg calcium- 200 unit Tablet 1 tab PO DAILY RF: 0 Follow up/Referrals: Miscellaneous,Doctor, MD [Primary Care Provider] - Diet/Activity/Treatments Diet: Carb-consistent/Diabetic, Low-fat and Low-cholesterol Visit Report/Discharge Packet Instructions: High Cholesterol, Left Brain Stroke Discharge Data Primary Care Provider: Doctor Tk Quality Stroke Contraindication Not Initiating IV-Tpa: Not indicated Onset of Symptoms Date: 10/19/20 Rehab Services Assessed: Rehabilitation therapy VTE Deep Vein Thrombosis/Pulmonary Embolism Present on Admission: No MIPS - DC The patient has current or prior documentation of left ventricular ejection fraction (LVEF) less than 40%, or moderate or severely depressed left ventricular systolic function.: No
--- NOTE | 2020-10-20 14:45 | CM.DPC ---
DCP Cont: Met with patient and . After she discussed with , decided that she does not want to go to [facility], wants to go home with either outpatient P.T, or home health. After discussing with therapy, patient may benefit with outpatient home health with more intense therapy versus home health, which could be limited. Patient is ok with outpatient therapy at [facility]. Updated hospitalist, Dr. Sandoval, on patient' wishes. He will write a prescription for P.T, and O.T, for patient to follow up. , very supportive, and will be transporting patient to therapy. Patient also had recent catarac surgery, and has not been driving. P: Patient will be discharged home today with outpatient therapy at [facility], versus inpatient rehab or home health. Will leave an updated voice mail with [facility] on patient's decision. Karma Recinos RN/Political Reporter.
--- NOTE | 2020-10-20 15:13 | PC.NURSE ---
Pt A&Ox3. VSS, afebrile, RA. NSR on telemtry. MRI and echo completed today. NIH 2-3 with R sided numbness/tingling, slight R UE ataxia and RLE weakness. Pt complained of headache after MRI, medicated with PRN tylenol with good effect.Working with PT this a.m. reported that R knee maritza recommending SNF. reviewed results of MRI, echo and testing with patient and . They request discharge home. Yesenia PAN discussing options with patient this afternoon. No acute distress
[2020-10-20 15:35] VITALS: BP 116/70; PULSE 68; RESP 16; TEMP 36.7; O2SAT 97
--- NOTE | 2020-10-20 17:01 | PC.NURSE ---
Discharge Note- Patient discharged home. Discharge instructions and education reviewed with patient and signed. IV line removed andbandaid applied. Tele monitor removed. Patient dressed self while spouse packed up personal belongings. Rx's given to patient. Patient left via wheelchair to private car at 1630.
--- NOTE | 2020-10-22 12:57 | CM.DPC ---
Addendum entered by Hortencia Carcamo R.N. 10/22/20 13:01: Spoke to Dr. Sandoval and he said that sounded fine and that he would defer to PT judgment at this time. Original Note: MD contacted CM after getting a phone call from patient. She was under the impression that she would only be getting once a week PT sessions. was wondering if he could do something to increase from once weekly. I called [facility] in [place]. After their initial evaluation screening their PT is recommending twice weekly. Will update physician yen and see if that is agreeable.
== END 2020-10-20 16:30 | disposition home or self-care (01) | DRG 66 ==
LOC: ED 13:19 → AC 14:27
PROVIDERS: Admitting Provider Internal Medicine; Emergency Provider Emergency Medicine; Referring Provider Emergency Medicine; Visit Provider Internal Medicine
DX: I63.9 Cerebral infarction, unspecified (principal); R53.1 Weakness; R20.0 Anesthesia of skin; F32.9 Major depressive disorder, single episode, unspecified
CPT/HCPCS: 36415; 70450; 70496; 70498; 70548; 70553; 71045; 72156; 80048; 80053; 80061; 82550; 82607; 83036; 83690; 83735; 84443; 84484; 85025; 87635; 93005; 93306; 97116; 97161; 99285; C9803; A9579; J1650; J2060; Q9967

== ENCOUNTER 2023-10-27 09:53 | Emergency (ER) | payer MEDICARE, OTHER, SELFPAY ==
[2020-10-19 21:58] VITALS: BMI 29.4
[2023-10-27] VITALS (9 sets, daily range): BP systolic 110–146; BP diastolic 58–71; PULSE 69–100; RESP 13–21; TEMP 36.7–37; O2SAT 93–98; BMI 28.5
--- NOTE | 2023-10-27 10:03 | DI.RAD.S_ITS ---
PROCEDURE: XR CHEST 1V INDICATIONS: chest pain TECHNIQUE: One view of the chest was acquired. COMPARISON: [facility], CR, XR CHEST 1V, 10/19/2020, 10:43. FINDINGS: Surgical changes and devices: None. Lungs and pleura: Lungs are clear. No pleural effusions or pneumothorax. Mediastinum: Mediastinal contours appear normal. Heart size is normal. Bones and chest wall: No suspicious bony lesions. Overlying soft tissues appear unremarkable. IMPRESSION: No acute cardiopulmonary abnormality is seen. Dictated by: Ludwin Warren M.D. on 10/27/2023 at 10:46 Approved by: Ludwin Warren M.D. on 10/27/2023 at 10:46
[2023-10-27 10:26] LABS: Add Manual Diff / Slide Review NO; Basophils Absolute Auto 0 /uL (0-100); Basophils Percent Auto 0.2 % (0-2); Eosinophils Absolute Auto 100 /uL (0-450); Eosinophils Percent Auto 0.6 % (2-4); Hematocrit 42.6 % (36-46); Hemoglobin 14.3 g/dL (12.0-16.0); Lymphocytes Absolute Auto 200 /uL (1100-4500); Lymphocytes Percent Auto 2.9 % (25-40); Mean Corpuscular HGB Conc 33.7 % (30-36); Mean Corpuscular Hemoglobin 26.9 PG (26-34); Mean Corpuscular Volume 79.8 fL (80-100); Monocytes Absolute Auto 600 /uL (0-900); Monocytes Percent Auto 7.1 % (3-14); Neutrophils Absolute Auto 7200 /uL (1500-7000); Neutrophils Percent Auto 89.2 % (50-75); Platelet Count 186 X10^3/uL (150-400); Red Blood Cell Count 5.33 X10^6/uL (4.0-5.2); Red Cell Distribution Width 13.8 % (11.6-14.8); White Blood Cell Count 8.1 X10^3/uL (4.5-11.0)
[2023-10-27 10:37] LABS: Prothrombin Time 11.8 SECONDS (9.4-12.5)
[2023-10-27 10:40] LABS: PTT Partial Thromboplastin Tim 31 SECONDS (25.1-36.5)
[2023-10-27 10:43] LABS: Albumin 4.3 g/dL (3.5-5.0); Albumin Globulin Ratio 1.5 (1.0-2.8); Alkaline Phosphatase 436 U/L (38-126); BUN Creatinine Ratio 23.5 (6-22); Bilirubin Total 2.5 mg/dL (0.2-1.3); Blood Urea Nitrogen 12 mg/dL (7-17); Calcium 9.5 mg/dL (8.4-10.2); Carbon Dioxide 24 mmol/L (22-32); Chloride 110 mmol/L (98-107); Creatine Kinase 41 U/L (30-135); Estimated Glomerular Filt Rate > 60 mL/min (>60); Globulin 2.9 g/dL (1.7-4.1); Glucose 196 mg/dL (80-110); HEMOLYSIS < 15 (0-50); Lipase 182 U/L (23-300); Magnesium 1.9 mg/dL (1.6-2.3); Sodium 139 mmol/L (137-145); Total Protein 7.2 g/dL (6.3-8.2)
[2023-10-27 10:51] LABS: Alanine Aminotransferase 876 IU/L (<35); Aspartate Aminotransferase 926 IU/L (14-36)
[2023-10-27 10:54] LABS: Troponin I < 0.012 ng/mL (0.01-0.034)
--- NOTE | 2023-10-27 11:30 | ED_ITS ---
HPI - Arrhythmia/Palpitations General Chief Complaint: Arrhythmia/Palpitations Stated Complaint: pulse rate high head hurts really cold Time Seen by Provider: 10/27/23 11:03 Source: patient Mode of arrival: Wheelchair History of Present Illness HPI narrative: Patient 73-year-old with history of CVA presents today with variety of complaints. Reports that she was very cold last night could not get warm needed multiple blankets. She has a headache this morning which is for her. It has not the worst headache of her life she has not nauseous or vomiting. She has no new numbness or tingling. All the tingling she has is from her stroke. She feels like her heart rate is fast but not really having any sort of chest pain no abdominal pain nausea vomiting. She did not take her temperature last night she is afebrile here. She is generally does not feel well. Related Data Home Medications Medication Instructions Recorded Confirmed aspirin 81 mg tablet,delayed 81 mg PO DAILY 10/19/20 10/19/20 release calcium carb-ergocalciferol (vit 1 tab PO DAILY 10/19/20 10/19/20 D2) 600 mg calcium-200 unit tablet levothyroxine 25 mcg tablet 25 mcg PO DAILY 10/19/20 10/19/20 (Synthroid) multivitamin 1 tab PO DAILY 10/19/20 10/19/20 omeprazole 20 mg capsule,delayed 20 mg PO DAILY 10/19/20 10/19/20 release sertraline 100 mg tablet 200 mg PO DAILY 10/19/20 10/19/20 tolterodine 2 mg capsule,extended 2 mg PO DAILY 10/19/20 10/19/20 release 24 hr Previous Rx's Medication Instructions Recorded atorvastatin 20 mg tablet (Lipitor) 80 mg (4 x 20 mg) PO BEDTIME #120 10/20/20 tabs clopidogrel 75 mg tablet 75 mg PO DAILY #30 tabs 10/20/20 Allergies Allergy/AdvReac Type Severity Reaction Status Date / Time zinc Allergy Verified 10/27/23 10:01 Patient History Medical History Hypothyroidism Family History Sister Coronary artery disease Social History household members: spouse Smoking Status: Never smoker Smoking Status: Never smoker alcohol intake frequency: holidays/special occasions only Substance Use Type: does not use Exam Initial Vital Signs Initial Vital Signs: Vital Signs Temperature 98.3 F 10/27/23 09:54 Pulse Rate 100 H 10/27/23 09:54 Respiratory Rate 13 10/27/23 09:54 Blood Pressure 140/67 10/27/23 09:54 Pulse Oximetry 93 10/27/23 09:54 Oxygen Delivery Method Room Air 10/27/23 09:54 GENERAL: Alert pleasant 73-year-old female appears mildly uncomfortable and in no acute distress. HEENT: Head atraumatic,EOMI, pupils reactive, face symmetric, moist mucous membranes CARDIOVASCULAR: Regular rate and rhythm without murmurs, rubs or gallops. RESPIRATORY: Breath sounds equal bilaterally, no wheezes rales or rhonchi. ABDOMEN: Soft, no real epigastric pain negative Delgado sign EXTREMITIES: Normal range of motion, no clubbing or edema. Neurovascularly intact NEUROLOGICAL: Alert and oriented x4.Normal gait and speech. Cranial nerves II through XII grossly intact. Industrial Machine Assembler strength equal SKIN: Warm, dry, no laceration, no petechiae, no rashes or lesions. Course Orders Ordered: ED Orders 10/27/23 11:31 US abdomen limited Stat 10/27/23 11:55 Blood Culture Stat 10/27/23 14:14 MRCP [MR abdomen wo/w con] Stat 10/27/23 14:23 CT head/brain wo con Stat 10/27/23 15:20 Respiratory Panel (Film Array) Stat 10/27/23 17:33 CMP [Comprehensive Metabolic Panel] Stat Sodium Chloride (Normal Saline 0.9%) 1,000 mls @ 125 mls/hr IV CONT KRYSTIAN Last Admin: 10/27/23 14:31 Dose: 125 mls/hr Documented By: LOTUS Discontinued Medications Sodium Chloride (Normal Saline 0.9%) 1,000 mls @ 1,000 mls/hr IV BOLUS ONE Stop: 10/27/23 12:36 Last Infusion: 10/27/23 12:28 Dose: Infused Documented By: Admin: 10/27/23 11:49 Dose: 1,000 mls/hr Documented By: DARREN Ketorolac Tromethamine (Ketorolac 30 Mg/Ml Vial) 15 mg IV NOW ONE Stop: 10/27/23 11:38 Last Admin: 10/27/23 11:50 Dose: 15 mg Documented By: DARREN Morphine Sulfate (Morphine 2 Mg/Ml Inj) 2 mg IV NOW ONE Stop: 10/27/23 14:24 Last Admin: 10/27/23 14:31 Dose: 2 mg Documented By: LOTUS Vital Signs Vital signs: Vital Signs - 8 hr 10/27/23 11:30 10/27/23 12:00 10/27/23 12:30 Temperature Pulse Rate 91 H 85 79 Respiratory Rate 18 16 Blood Pressure 137/67 133/71 130/64 Pulse Oximetry 95 96 95 Oxygen Delivery Method Room Air Room Air 10/27/23 14:12 10/27/23 15:34 Temperature 98.6 F Pulse Rate 80 79 Respiratory Rate 17 14 Blood Pressure 131/58 L 110/65 Pulse Oximetry 94 98 Oxygen Delivery Method Room Air Room Air MDM - Arrhythmia/Palpitations Lab Data 10/27/23 10:06 10/27/23 17:33 Labs: Lab Results 10/27/23 10/27/23 10/27/23 Range/Units 10:06 15:20 17:33 WBC 8.1 (4.5-11.0) X10^3/uL RBC 5.33 H (4.0-5.2) X10^6/uL Hgb 14.3 (12.0-16.0) g/dL Hct 42.6 (36-46) % MCV 79.8 L (80-100) fL MCH 26.9 (26-34) PG MCHC 33.7 (30-36) % RDW 13.8 (11.6-14.8) % Plt Count 186 (150-400) X10^3/uL Neut % (Auto) 89.2 H (50-75) % Lymph % (Auto) 2.9 L (25-40) % [place] % (Auto) 7.1 (3-14) % Eos % (Auto) 0.6 L (2-4) % Baso % (Auto) 0.2 (0-2) % Neut # (Auto) 7200 H (8198-5357) /uL Lymph # (Auto) 200 L (1178-3310) /uL [place] # (Auto) 600 (0-900) /uL Eos # (Auto) 100 (0-450) /uL Baso # (Auto) 0 (0-100) /uL PT 11.8 (9.4-12.5) SECONDS INR 1.0 (0.9-1.3) APTT 31 (25.1-36.5) SECONDS Sodium 139 141 (137-145) mmol/L Potassium 4.0 3.9 (3.4-5.1) mmol/L Chloride 110 H 116 H (98-107) mmol/L Carbon Dioxide 24 25 (22-32) mmol/L BUN 12 9 (7-17) mg/dL Creatinine 0.51 L 0.50 L (0.52-1.04) mg/dL Estimated GFR > 60 > 60 (>60) mL/min BUN/Creatinine Ratio 23.5 H 18.0 (6-22) Glucose 196 H 94 D (80-110) mg/dL Lactate 1.7 (0.7-2.1) mmol/L Calcium 9.5 8.4 (8.4-10.2) mg/dL Magnesium 1.9 (1.6-2.3) mg/dL Total Bilirubin 2.5 H 2.1 H (0.2-1.3) mg/dL AST 926 H 747 H (14-36) IU/L ALT 876 H 737 H (<35) IU/L Alkaline Phosphatase 436 H 333 H (38-126) U/L Total Creatine Kinase 41 (30-135) U/L Troponin I < 0.012 (0.01-0.034) ng/mL Total Protein 7.2 6.0 L (6.3-8.2) g/dL Albumin 4.3 3.4 L (3.5-5.0) g/dL Globulin 2.9 2.6 (1.7-4.1) g/dL Albumin/Globulin Ratio 1.5 1.3 (1.0-2.8) Lipase 182 (23-300) U/L Procalcitonin 0.480 (<0.5) ng/mL Chlamy pneumoniae PCR Not detected (Not Detect) Adenovirus (PCR) Not detected (Not Detect) B.parapertussis DNA PCR Not detected (Not Detecte) Coronavirus OC43 (PCR) Not detected (Not Detect) Coronavirus HKU1 (PCR) Not detected (Not Detect) Coronavirus 229E (PCR) Not detected (Not Detect) SARS-CoV-2 (PCR) Not detected (Not Detecte) Coronavirus NL63 (PCR) Not detected (Not Detect) Human Metapneumovir PCR Not detected (Not Detect) Influenza Type A (PCR) Not detected (Not Detect) Influenza Type B (PCR) Not detected (Not Detect) M. pneumoniae (PCR) Not detected (Not Detect) Parainfluenza 1 (PCR) Not detected (Not Detect) Parainfluenza 2 (PCR) Not detected (Not Detect) Parainfluenza 3 (PCR) Not detected (Not Detect) Parainfluenza 4 (PCR) Not detected (Not Detect) RSV (PCR) Not detected (Not Detect) Entero/Rhino (PCR) Not detected (Not Detect) Urine Dip Bedside Urine Glucose Negative Bedside Urine Bilirubin - Negative Bedside Urine Ketone - Negative Urine Specific [place] 1.01 Bedside Urine Occult Blood - Negative Bedside Urine pH 9.0 Bedside Urine Protein - Negative Bedside Urine Urobilinogen - Negative Bedside Urine Nitrite - Negative Bedside Urine Leukocytes - Negative Esterase Imaging Data Chest x-ray: Radiologist's Impresson: PROCEDURE: XR CHEST 1V INDICATIONS: chest pain TECHNIQUE: One view of the chest was acquired. COMPARISON: [facility], , XR CHEST 1V, 10/19/2020, 10:43. FINDINGS: Surgical changes and devices: None. Lungs and pleura: Lungs are clear. No pleural effusions or pneumothorax. Mediastinum: Mediastinal contours appear normal. Heart size is normal. Bones and chest wall: No suspicious bony lesions. Overlying soft tissues appear unremarkable. IMPRESSION: No acute cardiopulmonary abnormality is seen. Dictated by: Ludwin Warren M.D. on 10/27/2023 at 10:46 US - abdomen: Radiologist's Impresson: PROCEDURE: US ABDOMEN LIMITED INDICATIONS: ruq elevated bili nd liver enzymes TECHNIQUE: Real-time scanning was performed of the abdominal and retroperitoneal organs, with image documentation. COMPARISON: None. FINDINGS: Liver: Liver is normal in size and homogeneous in echotexture. Gallbladder: Layering gallstones are present in the gallbladder. No wall thickening. No pericholecystic edema. Negative sonographic Delgado's sign. Biliary ducts: Intrahepatic bile ducts are non-dilated. Extrahepatic bile duct caliber measures 3 mm. Normal is 6-7 mm or less in diameter, or 10 mm or less post-cholecystectomy. Pancreas: Visualized portions of the pancreas are sonographically normal. Miscellaneous: No free abdominal fluid. IMPRESSION: Cholelithiasis without evidence of acute cholecystitis. Dictated by: Ludwin Warren M.D. on 10/27/2023 at 13:37 ECG Data Attestation: I personally reviewed and interpreted this ECG as follows: Interpretation: Normal sinus rhythm rate 98 MT interval 182 QRS [address] changes T-wave inversions MDM Narrative Medical decision making narrative: MDM CC: Headache heart pounding Complicating co-morbidities: History of CVA Corroborating data: [ ] Data collected from: Chart and has been Medical records reviewed: Yes Exam documented above, pertinent findings include: No focal deficits appears to not feel well breath sounds are clear abdomen is soft nontender no epigastric pain or right upper quadrant pain Lab Test results independently reviewed as above. Pertinent findings: WBC 8, bilirubin 2.5, AST 926, ALT 876, alk-phos 436, lipase 182, creatinine 0.5, troponin negative Repeat bilirubin 2.1 AST 747, ALT 737, but alk-phos 333 Viral panel is negative Independently reviewed EKG as above sinus rhythm Imaging studies independently reviewed: Chest x-ray negative, ultrasound positive for cholelithiasis without cholecystitis MRI no choledocholithiasis or cholecystitis but positive for cholelithiasis Consultations: 1420 Dr. Leonard updated patient's symptoms test results recommends MRCP 1899DrWendie Leonard, reports that she likely passed a gallstone recently no evidence of acute cholecystitis she is asymptomatic as an outpatient Treatments: IV fluids and Toradol Re-evaluations: Patient still continues to have headache although her headache has improved. She does not typically get headaches no new focal deficits. Again abdomen not tender Discussion: Patient today presenting with headache and heart pounding in her head. She is found to incidentally have an elevated bilirubin and liver enzymes concern for cholelithiasis acute cholecystitis. Ultrasound does confirm cholelithiasis without cholecystitis. Waiting on MRCP for confirmation of choledocholithiasis. No evidence of pancreatitis. She really just wants her headache to go away. Head CT is ordered because she has ongoing headache Patient has absolutely no abdominal pain nausea or vomiting. She is found to have cholelithiasis but is asymptomatic. Really is having headache which has improved over the 9 hours that she has been in the emergency department. Head CT does not show any evidence of intracranial hemorrhage or abnormality. Discharge Plan Departure Patient Disposition: Home Clinical Impression: Cholelithiasis Instructions: Gallstones Activity Restrictions/Additional Instructions: *You have been diagnosed with gallstones *What to do: At this time I do recommend they follow gallbladder diet. He will likely need your gallbladder removed but not emergently day *Continue to take medications as directed Tylenol or Motrin needed for pain *Follow up with your primary care provider in 2-3 days or call [phone] Dr. Leonard and or [facility] call tomorrow to schedule an appoint *Return to ER if you should have abdominal pain persistent vomiting fever or any new, worsening or concerning symptoms Prescriptions: No Action omeprazole 20 mg capsule,delayed release(DR/EC) 20 mg PO DAILY multivitamin Tablet 1 tab PO DAILY tolterodine 2 mg capsule,extended release 24hr 2 mg PO DAILY sertraline 100 mg tablet 200 mg PO DAILY aspirin 81 mg tablet,delayed release (DR/EC) 81 mg PO DAILY levothyroxine [Synthroid] 25 mcg tablet 25 mcg PO DAILY calcium carbonate-vitamin D2 600 mg calcium- 200 unit Tablet 1 tab PO DAILY atorvastatin [Lipitor] 20 mg Tablet 80 mg PO BEDTIME Qty: 120 0RF clopidogrel 75 mg Tablet 75 mg PO DAILY Qty: 30 0RF Referrals: [facility] [Provider Group] Oh Leonard MD [Physician] - Miscellaneous,MD José Luis [Primary Care Provider] - Stand Alone Forms: Patient Portal/API
[2023-10-27] MEDS: SODIUM CHLORIDE 0.9% 1,000 ML 1000 ML IV (11:49)
[2023-10-27] MEDS: KETOROLAC 30 MG/ML VIAL 15 MG IV (11:50)
[2023-10-27 11:54] LABS: Lactate (Lactic Acid) 1.7 mmol/L (0.7-2.1)
--- NOTE | 2023-10-27 14:14 | DI.MRI.S_ITS ---
PROCEDURE: MR ABDOMEN WO/W CON INDICATIONS: high bili with cholelithasis TECHNIQUE: Coronal HASTE, axial 2D FLASH in- and [id number]; axial breath-hold T2 FSE with fat saturation from the hepatic dome to the iliac crests. Oblique coronal thin-slice and radial thick slab HASTE through the biliary system. Dynamic axial VIBE during administration of contrast. Post-contrast coronal VIBE or 2D FLASH with fat saturation from the hepatic dome to the iliac crests. Optional diffusion weighted imaging and ADC may be performed. COMPARISON: [facility], , US ABDOMEN LIMITED, 10/27/2023, 12:37. FINDINGS: Image quality: Diagnostic. Gallbladder: Cholelithiasis. No significant wall thickening. Biliary ducts: No biliary dilation. Pancreas: No ductal dilation. OTHER: Lung bases: Small hiatal hernia. Liver: No solid mass. Benign, non complex cyst in segment 2 measuring 1.9 centimeter. Spleen: Size is within normal limits. Adrenal Glands: No adrenal nodules. Kidneys and Ureters: No hydronephrosis. No solid mass. No complex renal cystic lesion which requires follow up. Stomach and Bowel: Normal colonic caliber, without significant wall thickening. Peritoneum: No abnormal intraperitoneal fluid. No free air. Ventral Wall: No hernia. Abdominal Nodes: No retroperitoneal or mesenteric adenopathy by size criteria. Vessels: Aorta and inferior vena cava are normal in size. Bones: No aggressive osseous abnormality. IMPRESSION: Cholelithiasis without evidence acute cholecystitis or choledocholithiasis. Dictated by: Benjamin Hagan M.D. on 10/27/2023 at 16:21 Approved by: Benjamin Hagan M.D. on 10/27/2023 at 16:25
--- NOTE | 2023-10-27 14:23 | DI.CT.S_ITS ---
PROCEDURE: CT HEAD/BRAIN WO CON INDICATIONS: worsening headache TECHNIQUE: Noncontrast 4.5 mm thick angled axial sections acquired from the foramen magnum to the vertex, with coronal and sagittal reformats. For radiation dose reduction, the following was used: automated exposure control, adjustment of mA and/or kV according to patient size. COMPARISON: [facility], CT, CT HEAD/BRAIN WO CON, 10/19/2020, 11:26. FINDINGS: Image quality: Diagnostic. CSF spaces: Basal cisterns are patent. No extra-axial fluid collections. The ventricles are symmetric in size and shape. Brain: No intracranial bleeds or masses. There is cerebral volume loss for age, with resultant ventricular and sulcal prominence. There are periventricular and deep white matter chronic small vessel ischemic changes. There is intracranial internal carotid artery atherosclerosis. Skull and face: Calvarium and visualized facial bones appear intact, without suspicious lesions. Sinuses: Visualized sinuses and mastoids are clear. IMPRESSION: 1. No acute intracranial process. 2. Mild atrophy and chronic microvascular ischemic changes. Dictated by: Vianney Walters M.D. on 10/27/2023 at 15:26 Approved by: Vianney Walters M.D. on 10/27/2023 at 15:27
[2023-10-27] MEDS: SODIUM CHLORIDE 0.9% 1,000 ML 125 ML IV (14:31)
[2023-10-27] MEDS: MORPHINE 2 MG/ML INJ IV (14:31)
[2023-10-27 16:15] LABS: Adenovirus Not Detected (Not Detect); B. parapertussis Not Detected (Not Detecte); Bordetella pertussis Not Detected (Not Detect); Chlamydophila pneumoniae Not Detected (Not Detect); Coronavirus 229E Not Detected (Not Detect); Coronavirus HKU1 Not Detected (Not Detect); Coronavirus NL 63 Not Detected (Not Detect); Coronavirus OC43 Not Detected (Not Detect); Human Metapneumovirus Not Detected (Not Detect); Human Rhinovirus/Enterovirus Not Detected (Not Detect); Influenza A Not Detected (Not Detect); Influenza B Not Detected (Not Detect); Mycoplasma pneumoniae Not Detected (Not Detect); Parainfluenza Virus 1 Not Detected (Not Detect); Parainfluenza Virus 2 Not Detected (Not Detect); Parainfluenza Virus 3 Not Detected (Not Detect); Parainfluenza Virus 4 Not Detected (Not Detect); Respiratory Syncytial Virus Not Detected (Not Detect); SARS- CoV-2 Not Detected (Not Detecte)
[2023-10-27 17:52] LABS: Alanine Aminotransferase 737 IU/L (<35); Albumin 3.4 g/dL (3.5-5.0); Albumin Globulin Ratio 1.3 (1.0-2.8); Alkaline Phosphatase 333 U/L (38-126); Aspartate Aminotransferase 747 IU/L (14-36); Bilirubin Total 2.1 mg/dL (0.2-1.3); Blood Urea Nitrogen 9 mg/dL (7-17); Calcium 8.4 mg/dL (8.4-10.2); Carbon Dioxide 25 mmol/L (22-32); Chloride 116 mmol/L (98-107); Estimated Glomerular Filt Rate > 60 mL/min (>60); Globulin 2.6 g/dL (1.7-4.1); Glucose 94 mg/dL (80-110); HEMOLYSIS < 15 (0-50); Potassium 3.9 mmol/L (3.4-5.1); Sodium 141 mmol/L (137-145)
== END 2023-10-27 19:30 | disposition home or self-care (01) ==
PROVIDERS: Emergency Provider Emergency Medicine
DX: K80.20 Calculus of gallbladder without cholecystitis without obstruction (principal); R07.9 Chest pain, unspecified; R51.9 Headache, unspecified; R74.8 Abnormal levels of other serum enzymes
CPT/HCPCS: 36415; 70450; 71045; 74183; 76705; 80053; 81003; 82550; 83605; 83690; 83735; 84145; 84484; 85025; 85610; 85730; 87040; 87633; 93005; 99284; J1885; J2270

== ENCOUNTER → 2023-11-03 13:31 | Outpatient (CLI) | payer MEDICARE, OTHER, SELFPAY ==
[2020-10-19 21:58] VITALS: BMI 29.4
[2023-11-03 14:36] LABS: Add Manual Diff / Slide Review NO; Basophils Absolute Auto 0 /uL (0-100); Basophils Percent Auto 0.4 % (0-2); Eosinophils Absolute Auto 100 /uL (0-450); Hematocrit 41.2 % (36-46); Hemoglobin 13.9 g/dL (12.0-16.0); Lymphocytes Absolute Auto 700 /uL (1100-4500); Lymphocytes Percent Auto 16.6 % (25-40); Mean Corpuscular HGB Conc 33.8 % (30-36); Mean Corpuscular Hemoglobin 27.3 PG (26-34); Mean Corpuscular Volume 80.6 fL (80-100); Monocytes Absolute Auto 400 /uL (0-900); Monocytes Percent Auto 8.5 % (3-14); Neutrophils Absolute Auto 3100 /uL (1500-7000); Neutrophils Percent Auto 72.5 % (50-75); Platelet Count 212 X10^3/uL (150-400); Red Blood Cell Count 5.11 X10^6/uL (4.0-5.2); Red Cell Distribution Width 13.9 % (11.6-14.8); White Blood Cell Count 4.2 X10^3/uL (4.5-11.0)
[2023-11-03 14:50] LABS: Alanine Aminotransferase 152 IU/L (<35); Albumin 4.1 g/dL (3.5-5.0); Albumin Globulin Ratio 1.4 (1.0-2.8); Alkaline Phosphatase 266 U/L (38-126); Aspartate Aminotransferase 56 IU/L (14-36); BUN Creatinine Ratio 23.7 (6-22); Bilirubin Total 0.7 mg/dL (0.2-1.3); Blood Urea Nitrogen 14 mg/dL (7-17); Calcium 9.3 mg/dL (8.4-10.2); Carbon Dioxide 28 mmol/L (22-32); Chloride 109 mmol/L (98-107); Estimated Glomerular Filt Rate > 60 mL/min (>60); Glucose 93 mg/dL (80-110); HEMOLYSIS < 15 (0-50); Lipase 199 U/L (23-300); Potassium 4.2 mmol/L (3.4-5.1); Sodium 142 mmol/L (137-145); Total Protein 7.1 g/dL (6.3-8.2)
== END ==
PROVIDERS: PCP Nurse Practitioner Family; Referring Provider Surgery; Visit Provider Surgery
DX: K80.20 Calculus of gallbladder without cholecystitis without obstruction (principal)
CPT/HCPCS: 36415; 80053; 83690; 85025; 99213

== ENCOUNTER 2023-12-21 11:36 | Day surgery (SDC) | payer MEDICARE, OTHER, SELFPAY ==
[2020-10-19 21:58] VITALS: BMI 29.4
[2023-12-15 12:25] VITALS: BMI 27.3
[2023-12-21] VITALS (8 sets, daily range): BP systolic 100–146; BP diastolic 66–76; PULSE 60–67; RESP 12–20; TEMP 36.1–37; O2SAT 95–98; BMI 27.1
--- NOTE | 2023-12-21 | DI.RAD.S_ITS ---
PROCEDURE: XR CHOLANGIOGRAM OPERATIVE INDICATIONS: LAP ZELDA COMPARISON: None. FINDINGS: Biliary ducts: The surgeon injected contrast into the biliary ducts after cannulation of the cystic duct stump. Visualized intra- and extrahepatic bile ducts are normal in caliber, without strictures. No intraluminal filling defects to suggest retained ductal stones or sludge. No evidence for iatrogenic ductal injury. Duodenum: Contrast flows promptly through the sphincter of Oddi into the duodenum, which appears normal in caliber. IMPRESSION: Normal operative cholangiogram. Dictated by: Adam Garcia M.D. on 12/22/2023 at 11:31 Approved by: Adam Garcia M.D. on 12/22/2023 at 11:32
--- NOTE | 2023-12-21 | PATH_ITS ---
[facility] Accession Number: [id number] No. of containers..01 Tissue . 01 Material submitted: . gallbladder - GALLBLADDER . 01 Diagnosis: GALLBLADDER, CHOLECYSTECTOMY: Mild to moderate chronic calculous cholecystitis and reactive changes. Negative for dysplasia and malignancy. [facility] 12/23/2023 1125 Local . 01 Electronically signed: . Ross Hair MD, Pathologist NPI- [id number] . 01 Gross description: . Received in formalin with two identifiers and gallbladder, is an intact gallbladder 7.5 x 2.6 x 2.5 cm with a violaceous, roughened external surface. The cystic duct margin is inked blue and no pericystic lymph node is identified. The lumen contains numerous small black calculi measuring up to 0.2 cm in greatest dimension not grossly obstructing the cystic duct and admixed with clear to hemorrhagic mucoid material. The mucosa is mac to erythematous and diffusely nodular with no yellow discoloration, polyps, or lesions identified. The marie average 0.2 cm thick. Assistant Wrestling Coach sections to include the cystic duct margin and full thickness sections are submitted in cassette A1. ([id number]) /[facility] 12/22/2023 1014 Local . 01 Pathologist provided ICD-10: K80.10 . 01 CPT . 274052 Specimen Comment: A courtesy copy of this report has been sent to [phone] Performed at: [address] [address] [address], [place], [place] [id number] MD Veto Manzo MD Phone: [phone]
--- NOTE | 2023-12-21 12:07 | PM.HP.1 ---
History of Present Illness History of Present Illness Date Patient Seen: 12/21/23 Time Patient Seen: 12:07 Chief complaint: SDC Narrative: Nita is a 73-year-old woman who has symptomatic cholelithiasis. She did have elevation of her liver enzymes at 1 point. PENDING SALE TO [facility] Medical History (Updated 12/15/23 @ 12:28 by Andra Brewster RN) Left thalamic infarction (10/19/20) Stroke Hypothyroidism Surgical History H/O wrist surgery History of removal of both ovaries H/O: hysterectomy History of tonsillectomy History of appendectomy Family History Sister Coronary artery disease Heart disease Gallstones Stroke Diabetes mellitus Brother No problems noted. Mother Non-Hodgkin lymphoma Diabetes mellitus Social History marital status: household members: spouse occupational status: previously employed Smoking Status: Never smoker alcohol intake: never substance use type: does not use Meds Home Medications and Allergies Home Medications Medication Instructions Recorded Confirmed Type calcium carb-ergocalciferol (vit 1 tab PO DAILY 10/19/20 11/03/23 History D2) 600 mg calcium-200 unit tablet levothyroxine 25 mcg tablet 25 mcg PO DAILY 10/19/20 11/03/23 History (Synthroid) multivitamin 1 tab PO DAILY 10/19/20 11/03/23 History tolterodine 2 mg capsule,extended 2 mg PO DAILY 10/19/20 11/03/23 History release 24 hr clopidogrel 75 mg tablet 75 mg PO DAILY #30 tabs 10/20/20 11/03/23 Rx atorvastatin 80 mg tablet 80 mg PO DAILY 11/03/23 11/03/23 History krill oil PO 11/03/23 11/03/23 History pantoprazole 40 mg tablet,delayed 40 mg PO DAILY 11/03/23 11/03/23 History release sertraline 200 mg capsule 200 mg PO DAILY 11/03/23 11/03/23 History Allergies Allergy/AdvReac Type Severity Reaction Status Date / Time zinc Allergy Verified 12/21/23 11:59 Exam Const General: healthy appearing Resp Effort & Inspection: normal respiratory effort Assessment & Plan Assessment and plan (1) Cholelithiasis: Qualifiers: Biliary obstruction: without biliary obstruction Cholecystitis presence: without cholecystitis Cholelithiasis location: gallbladder Qualified Code(s): K80.20 - Calculus of gallbladder without cholecystitis without obstruction Status: Inactive Plan We reviewed the risks and benefits of laparoscopic cholecystectomy with intraoperative cholangiogram and she would like to proceed. Time-Based Coding :: [TOTAL MINUTES] spent with patient and on the chart (including review of chart, obtaining history, exam, reviewing outside data, placing orders, documenting exam and treatment plan, and counseling patient) on [DATE].
[2023-12-21] MEDS: LACTATED RINGERS 1,000 ML 84 ML IV ×2 (12:15→14:03)
[2023-12-21] MEDS: CEFAZOLIN 2 GM/100 ML PREMIX 100 ML IV (12:55)
--- NOTE | 2023-12-21 13:10 | SUR.OPER ---
Supine on padded OR bed, head on pillow, safety belt at thigh, left arm padded and tucked at side. Right arm secured on padded arm board <90 degrees abduction. Legs uncrossed. Padded footboard in place. Tape over blanket to secure lower legs.
[2023-12-21] MEDS: BUPIVACAINE 0.5% (PF) 30 ML, EPINEPHrine 0.15 MG INJ (13:24)
[2023-12-21] MEDS: iopamidoL 30 ML VIAL INJ (13:26)
--- NOTE | 2023-12-21 13:51 | PM.OP.1 ---
Operative Date/Time/Diagnoses Date of procedure: 12/21/23 Time of procedure: 13:51 Procedure & Clinicians Procedure: Laparoscopic cholecystectomy with intraoperative cholangiogram Same procedure as scheduled: Yes Surgeon: Jad [employer] General Sales Manager: Skinny Dhillon Anesthesia Type: General Operative Notes Procedure in detail: The patient was given preoperative antibiotic. The patient was brought to the operating room, placed on the table in the supine position. General endotracheal anesthesia was induced. The abdomen was prepped and draped. A time-out was performed. We made a 1 cm infraumbilical incision. We dissected down to the base of the umbilical stalk using cautery. We grasped the umbilical stalk with a Mae clamp to elevate the abdominal wall. We scored the fascia in the midline with cautery 1 cm. We pierced the peritoneum with a Peon clamp. The Neeta port was placed and the abdomen was insufflated to 15 mmHg. A 5 mm 30 degree laparoscopic was inserted. There was no evidence of any injury from the entry. Next, we placed 5 mm ports in the subxiphoid position and right upper quadrant at the midclavicular line and anterior axillary line. The patient was then positioned in reverse Trendelenburg and the table was tilted to the left. The gallbladder was grasped at the dome and retracted cephalad. There were some adhesions of mesenteric tissue to the anterior wall of the gallbladder which were carefully dissected with cautery to allow full retraction of the gallbladder. We then dissected the cystic structures with a combination of hook cautery and blunt dissection. We obtained a critical view. Next, a cholangiogram was performed using the 6 Belgian ureteral catheter. There was good flow of contrast into the duodenum and liver with no obvious filling defects. The cystic duct-common duct junction was well visualized. We then placed hemoclips on the cystic duct and artery and divided the cystic duct and artery sharply between the clips. The gallbladder was then dissected off the liver and placed in a specimen retrieval bag. We irrigated the right upper quadrant and all the aspirate returned clear. We then removed the 5 mm ports under direct vision we removed the Neeta port. We then injected some local into the fascia and closed the fascia with 2 interrupted 0 Vicryl sutures. The skin incisions were closed with 4 Monocryl and Steri-Strips were applied. Band-Aids were applied over the Steri-Strips. EBL: 10 mL Specimen: Gallbladder Post-operative Condition: stable Disposition: PACU
--- NOTE | 2023-12-21 14:38 | EKG_ITS ---
[facility] [id number] [place] [id number] Test Date: 2023-12-21 Pat Name: Mary Beth Alfredo (Kathy) Department: [facility] Room: Gender: Female Rental Car Porter: GERTRUDE : 1950 Requested By: Order Number: [id number] Reading MD: Gabriel Cruz MD Measurements Intervals [place] Rate: 58 P: 50 HI: 186 QRS: 36 QRSD: 82 T: 29 QT: 448 QTc: 439 Interpretive Statements Sinus bradycardia Electronically Signed On 12-21-2023 16:51:01 PDT by Gabreil Cruz MD
--- NOTE | 2023-12-21 14:42 | SUR.PHASEII ---
Patient c/o midsternal chest pain; EKG ordered. Anesthesia notified, RT notified.
[2023-12-21] MEDS: OXYCODONE IR 5 MG TABLET PO (14:43)
== END 2023-12-21 15:46 | disposition home or self-care (01) ==
PROVIDERS: PCP Nurse Practitioner Family; Referring Provider Surgery; Visit Provider Surgery
PROC: 0FT44ZZ Resection of Gallbladder, Percutaneous Endoscopic Approach (ICD-10-PCS; CPT 47562; principal; 2023-12-21 12:15)
DX: K80.10 Calculus of gallbladder with chronic cholecystitis without obstruction (principal); R00.1 Bradycardia, unspecified
CPT/HCPCS: 47563; 74300; 76000; 93005; 93010; J0171; J0690; J1100; J1170; J1885; J2405; J2704; J3010; J3490; Q9967

== ENCOUNTER → 2024-04-06 11:52 | Outpatient (CLI) | payer MEDICARE, OTHER, SELFPAY ==
[2020-10-19 21:58] VITALS: BMI 29.4
--- NOTE | 2024-04-06 11:53 | DI.RAD.S_ITS ---
PROCEDURE: XR DEXA AXIAL SKELETON INDICATIONS: OSTEOPOROSIS SCREENING / POSTMENOPAUSAL COMPARISON: None. FINDINGS: Lumbar Spine: Bone mineral density 1.212 g/cm2, T score 1.2. Left Hip: Bone mineral density 0.802 g/cm2, T score -1.1 Left Femoral Neck: Bone mineral density 0.704 g/cm2, T score -1.3 Right Hip: Bone mineral density 0.806 g/cm2, T score -1.1. Right Femoral Neck: Bone mineral density 0.646 g/cm2, T score -1.8. Fracture Risk Calculation (when applicable): 10-year fracture risk of a major osteoporotic fracture 11 percent and of a hip fracture 2.1 percent. (T score greater or equal to -1.0 to: NORMAL) (T score from -1.1 to -2.4: OSTEOPENIA) (T score less than or equal to -2.5: OSTEOPOROSIS) IMPRESSION: Osteopenia with increased 10 year fracture risk. Follow-up guidelines as follows: Osteoporosis: Consider a repeat DEXA and Vertebral Fracture Assessment (VFA) exam in 2 years or sooner if medically necessary, to reassess this patient's status. Osteopenia: Consider a repeat DEXA in 2-3 years to reassess this patient's status, or if there is a new clinical indication. Normal: Consider a repeat DEXA in 5 years or sooner, or if there is a new clinical indication. All treatment decisions require clinical judgment and consideration of individual patient factors, including patient preferences, comorbidities, previous drug use, risk factors not captured in the FRAX model (e.g., frailty, falls, vitamin D deficiency, increased bone turnover, interval significant decline in bone density ) and possible under- or over-estimation of fracture risk by FRAX. In addition, the NOF Guide recommends that FDA-approved medical therapies be considered in postmenopausal women and men age >= 50 years with a: * Hip or vertebral (clinical or morphometric) fracture * T-score of <=-2.5 at the spine or hip * Ten-year fracture probability by FRAX of >= 3% for hip fracture or >=20% for major osteoporotic fracture. People with diagnosed cases of osteoporosis or at high risk for fracture should have regular bone mineral density tests. For patients eligible for Medicare, routine testing is allowed once every 2 years. The testing frequency can be increased to one year for patients who have rapidly progressing disease, those who are receiving or discontinuing medical therapy to restore bone mass, or have additional risk factors. Dictated by: Anthony Lynn M.D. on 04/06/2024 at 17:06 Approved by: Anthony Lynn M.D. on 04/06/2024 at 17:07
== END ==
DX: Z78.0 Asymptomatic menopausal state (principal); M85.89 Other specified disorders of bone density and structure, multiple sites
CPT/HCPCS: 77080